=== PATIENT | female | born 1995 | race Caucasian/White ===

== ENCOUNTER → 2023-09-23 08:19 | Outpatient (REF) | payer OTHER, SELFPAY | LOC: DHCBS MAIN 08:19 | PROVIDERS: ATTENDING PHYSICIAN Internal Medicine Cardiovascular Disease; FAMILY PHYSICIAN Physician Assistant Medical | DX: R00.2 Palpitations (principal) | CPT/HCPCS: 93306 ==

== ENCOUNTER 2023-09-29 17:18 | Emergency (ER) | payer OTHER, SELFPAY ==
[2023-09-29 17:26] VITALS: BP 145/100
[2023-09-29 17:48] LABS: HCG, Urine Qualitative Screen Negative
--- NOTE | 2023-09-29 21:02 | ED.GENMED ---
History of Present Illness
General
Chief Complaint: Musculo-Skeletal Complaint
Source: patient
Exam Limitations: none
Time Seen by Provider: 09/29/23 20:04
Nursing documentation reviewed up to this point in time: agreed with
Travel History
Have you had any contact with someone who has COVID-19?: No
Do you have any symptoms of coronavirus? Fever > 100 degrees, chills, cough, shortness of breath, sore throat, loss of taste or smell, muscle aches, or headache?: No
History of Present Illness
History of Present Illness:
The patient is a 27-year-old female who reports that she has had bilateral hip pain for at least 1 month. The patient reports she is a history of complex regional pain syndrome and she believes it is spreading into both of her hips. She complains
of severe unbearable burning pain located in both hips radiating down both legs. She reports at times she has a tingling sensation. Patient reports that she has been followed by a workman comp doctor as well as pain management and has been
receiving nerve block shots. Patient reports that the pain is still horrible. She is due to have a nerve block shot early next week but states she cannot function due to severe pain. She is requesting something for pain to hold her over for the
next few days.
Past History
Past History
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
ED Past Surgical History: , Gynecological and Tonsilectomy
Social History
Tobacco: Former smoker
Alcohol: Occasional
Drug: None
Personal: (Engaged)
Living: with family
Employment: Employed
Family History
Family History: Other (Father with a 'stiff heart'. Family history of diabetes depression and anxiety grandfather with a stent in valve replacement)
Review of Systems
Review of Systems
Allergies reviewed?: Yes
All Other Systems: ROS reviewed and negative except as documented in HPI and ROS
Constitutional: Reports no symptoms
EENT: Reports no symptoms
Respiratory: Reports no symptoms
Cardiac: Reports no symptoms
ABD/GI: Reports nausea
: Reports no symptoms
Musculoskeletal: Reports joint pain (Chronic pain in right wrist, right shoulder and bilateral hips), muscle pain and muscle stiffness
Skin: Reports no symptoms
Neurological: Reports other (Occasional tingling down both legs)
Endocrine: Reports no symptoms
Hematologic/Lymphatic: Reports no symptoms
Psychiatric: Reports no symptoms
Phy Exam
Physical Exam
Physical Exam:
Physical Exam
General: Patient appears anxious and uncomfortable. But is conversational
Neck: supple.
Heart: s1/s2 regular rate and rhythm, no murmur. equal radial pulses.
Lungs: no acute respiratory distress. clear bilaterally
Abdomen: normal bowel sounds. not tender. no CVAT. No pulsatile mass
Neuro: alert and oriented. no focal neurological deficits. 5 out of 5 strength in all extremities. No saddle anesthesia
Skin: no rash
Psychiatric: well kept. interactive and cooperative
Extremities: no edema. no calf tenderness. negative homans. good distal pulses
Course
Orders/Labs/Results
Orders:
Orders
09/29/23 17:27
Hips, Bilat 5 view W/AP Pelvis [CR Hips ALTON w/wo Pel Min 5 Vw*] Urgent
Comment:
Reason For Exam: bilateral hip pain
Include a pelvis x-ray?: Yes
09/29/23 17:28
Test Result ONCE
09/29/23 17:32
HCG, Urine Qualitative Screen Urgent
Date Specimen was Collected: 09/29/23
Time Specimen was Collected: 17:28
09/29/23 21:00
HYDROmorphone [Dilaudid] 2 mg PO NOW STA
09/29/23 21:01
Ondansetron Orally Disint [Zofran Odt (Orally Disintegrating)] 4 mg PO NOW STA
Vital Signs
Initial and Last Documented VS:
Initial Vital Signs
Temp Pulse Resp BP Pulse Ox
98.5 F 107 17 145/100 99
09/29/23 17:26 09/29/23 17:26 09/29/23 17:26 09/29/23 17:26 09/29/23 17:26
Last Documented Vital Signs
Temp Pulse Resp BP Pulse Ox
98.5 F 89 18 108/79 99
09/29/23 17:26 09/29/23 21:11 09/29/23 21:11 09/29/23 21:11 09/29/23 21:11
MDM/Problems Addressed
Differential Diagnosis Includes:
Radiculopathy, musculoskeletal pain, hip fracture
MDM/Problems Addressed:
Patient presents with chronic bilateral hip pain
*Radiology
Radiology exam reviewed: preliminary read by ED provider (Bilateral hip x-ray reviewed by me. No acute disease) and radiology read reviewed
*Pulse Oximetry
Patient hypoxic: no
*EKG
Interpreted by ED Provider?: NA
*Professional Advisor Interpretation
Rate: Professional Advisor- N/A
*Critical Care Note
Total Time (30-74mins, 75-104mins- exclusive of procedures): Not Applicable
Patient Management
Social determinants of health affecting care: Living situation and Strong social support
Escalation/DeEscalation of care consider admission/obs:
There is no sign of cauda equina or neurovascular deficiency. Patient has good strength in bilateral extremities and strong pulses. Patient encouraged to follow-up with her pain management doctor
ED Attending Note
-
Portions of this chart may have been created with voice recognition software.� Occasional wrong word or��sound alike� substitutions may have occurred due to the inherent limitations of voice recognition software.
Discharge Plan
Departure
Patient Disposition: Home (Routine Discharge)
Date of Disposition: 09/29/23
Time of Disposition: 21:44
Patient with high blood pressure during this ER visit?: Yes
Condition: Good
Covid-19: Not Applicable
Discharge Problem:
Chronic hip pain, bilateral
Instructions: Opioid medicines for short-term treatment of pain, Hip Pain ED, BLOOD PRESSURE
Prescriptions:
New
hydromorphone [Dilaudid] 2 mg tablet
2 mg PO Q6H PRN (Reason: Pain) Qty: 10 0RF
ondansetron 4 mg tablet,disintegrating
4 mg PO Q6H PRN (Reason: nausea and vomiting) Qty: 14 0RF
No Action
fluoxetine [Prozac] 20 mg Capsule
10 mg PO DAILY
Tablet
1 tab PO DAILY
doxepin 75 mg Capsule
75 mg PO HS
Patient Comments:
Patient takes medication as needed
hydromorphone 2 mg Tablet
2 mg PO Q4HPRN PRN (Reason: moderate pain) Qty: 0 0RF
ibuprofen 600 mg Tablet
600 mg PO Q6HPRN PRN (Reason: cramps) Qty: 0 0RF
simethicone 80 mg Tablet,Chewable
80 mg PO TIDPRN PRN (Reason: flatulence) Qty: 0 0RF
acetaminophen 325 mg Tablet
650 mg PO Q4HPRN PRN (Reason: mild pain) Qty: 0 0RF
Referrals:
Joselin Mullen PA-C [Family Provider] -
Activity Restrictions/Additional Instructions:
Please discuss getting an MRI of your lumbar spine and pelvis with your pain management doctor
Interventions
Interventions:
*Risk Screen - Suicide Last Done: 09/29/23 17:28
*General Assessment Last Done: 09/29/23 17:28
*Neglect/Abuse Screening Last Done: 09/29/23 17:28
*ED COVID-19 Vaccine History Last Done: 09/29/23 17:28
*Nursing Disposition Last Done: 09/29/23 21:56
ED-Musculoskeletal Assessment Last Done: 09/29/23 20:09
Discharge Date and Time
Discharge Date/Time: 09/29/23 21:57
[2023-09-29] MEDS: ZOFRAN ODT (ORALLY DISINTEGRATING) 4 MG PO (21:06)
[2023-09-29] MEDS: DILAUDID 2 MG PO (21:06)
[2023-09-29 21:11] VITALS: BP 108/79
--- NOTE | 2023-09-30 00:45 | ED.ADDNOTE ---
ED Addendum
ED Addendum
ED Addendum Note:
patient called to report that her [facility] pharmacy was out of dilaudid and requested that the prescription get sent to [address] I sent a cancellation to that [facility] pharmacy for the initial dilaudid prescription that was transmitted and
transmitted the new dilaudid prescription to [facility]
== END 2023-09-29 21:57 | disposition home or self-care (01) ==
LOC: EMR 17:18
PROVIDERS: Emergency Medicine; EMERGENCY PHYSICIAN Emergency Medicine; FAMILY PHYSICIAN Physician Assistant Medical
DX: M25.552 Pain in left hip (principal); M25.551 Pain in right hip; G89.29 Other chronic pain; Z87.891 Personal history of nicotine dependence
CPT/HCPCS: 99283; 73523; 81025

== ENCOUNTER 2023-10-04 07:20 | Emergency (ER) | payer OTHER, SELFPAY ==
[2023-10-04 07:23] VITALS: BP 140/93
--- NOTE | 2023-10-04 08:14 | ED.GENMED ---
History of Present Illness
General
Chief Complaint: Breathing Problem
Source: patient and records
Exam Limitations: none
Time Seen by Provider: 10/04/23 07:36
Nursing documentation reviewed up to this point in time: agreed with
Travel History
Have you had any contact with someone who has COVID-19?: No
Do you have any symptoms of coronavirus? Fever > 100 degrees, chills, cough, shortness of breath, sore throat, loss of taste or smell, muscle aches, or headache?: No
History of Present Illness
History of Present Illness:
Patient is a 27-year-old female presents to the emergency department with sudden onset of shortness of breath and wheezing at 10:30 PM last night. Patient denies fever or chills. Patient has a chronic cough since she had a left lower lobectomy due
to sequestration of her lung and 2019. Patient denies nasal congestion or sore throat. 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
spreading throughout her body. Patient had nausea and vomiting from the pain. Patient denies abdominal pain. However the patient states that she is only able to eat 1 meal every 2 to 3 days. Patient does not smoke or take oral control
pills. Patient does not use an inhaler. There is no apparent trigger to set the shortness of breath off. Patient denies history of PE or DVT. Patient states she is hot and cold all the time due to the pain and this is unchanged.
Past History
Past History
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
ED Past Surgical History: , Gynecological and Tonsilectomy
Social History
Tobacco: Former smoker
Alcohol: Occasional
Drug: None
Personal: (Engaged)
Living: with family
Employment: Employed
Family History
Family History: Other (Father with a 'stiff heart'. Family history of diabetes depression and anxiety grandfather with a stent in valve replacement)
Review of Systems
Review of Systems
All Other Systems: ROS reviewed and negative except as documented in HPI and ROS
Constitutional: Reports fatigue and chills
EENT: Reports no symptoms
Respiratory: Reports cough and trouble breathing; Denies hemoptysis
Cardiac: Reports chest pain; Denies diaphoresis or palpitations
ABD/GI: Reports nausea, vomiting and anorexia; Denies abdominal pain, diarrhea or constipated
: Reports no symptoms
Musculoskeletal: Reports other (Chronic right upper extremity pain)
Skin: Reports no symptoms
Hematologic/Lymphatic: Reports no symptoms
Phy Exam
Physical Exam
Physical Exam:
Physical Exam
General: moderate distress, alert and appropriate, morbidly obese, well hydrated
HENT: Normocephalic, supple with no lymphadenopathy, no thyromegaly
Eyes: Clear sclera, conjuctiva without injection
Heart: Regular rhythm and rate. No S3, S4. No murmur. No NVD
Lungs: moderate respiratory distress, no stridor, lung sounds clear and decreased in the left base, chest wall symmetrical and tender throughout
Abdomen: Soft, nontender, no organomegaly, no CVA tenderness, BS good
Neuro: Alert and oriented x 3, CN II - XII intact, no motor focality, no cerebellar dysfunction
Skin: no rash
Psychiatric: well kept. interactive and cooperative
Extremities: No edema, cyanosis, tenderness
Course
Orders/Labs/Results
Orders:
Orders
10/04/23 08:12
Ipratropium/Albuterol Sulfate [Duoneb] 3 ml INH R NOW ONE
10/04/23 08:13
Electrocardiogram (*1) Urgent
Reason for Study: Shortness of Breath
EKG- Treatment ONCE
Test Result ONCE
10/04/23 08:14
CR Chest - 2 Views Urgent
Comment:
Reason For Exam: sob
10/04/23 08:35
Complete Blood Count/With Diff Urgent
Comprehensive Metabolic Panel Urgent
D-Dimer Urgent
HCG, Serum Qualitative Screen Urgent
10/04/23 09:58
Dexamethasone Sod Phos Pf [Decadron] 10 mg IM NOW STA
Abnormal Lab Results
10/04/23
08:35
Hgb 11.7 L g/dL
(12.0-16.0)
Hct 35.6 L %
(37.0-47.0)
MCHC 32.9 L g/dL
(33.0-37.0)
RDW 14.6 H %
(11.5-14.5)
MPV 11.1 H fL
(7.4-10.4)
10/04/23 08:35
10/04/23 08:35
Vital Signs
Initial and Last Documented VS:
Initial Vital Signs
Temp Pulse Resp BP Pulse Ox
99.0 F 107 16 140/93 98
10/04/23 07:23 10/04/23 07:23 10/04/23 07:23 10/04/23 07:23 10/04/23 07:23
Last Documented Vital Signs
Temp Pulse Resp BP Pulse Ox
99.0 F 99 18 132/71 100
10/04/23 07:23 10/04/23 12:33 10/04/23 12:33 10/04/23 12:33 10/04/23 12:33
*Critical Care Note
Total Time (30-74mins, 75-104mins- exclusive of procedures): Not Applicable
Update Note
Update Note:
Patient is feeling better. Patient's voice is less hoarse and she is breathing more easily. The breath sounds are less coarse also. Patient is looking for a pain specialist who might do ketamine for her RSD. Patient will receive a referral along
with inhaler and steroids.
ED Attending Note
-
Portions of this chart may have been created with voice recognition software.� Occasional wrong word or��sound alike� substitutions may have occurred due to the inherent limitations of voice recognition software.
Discharge Plan
Departure
Patient Disposition: Home (Routine Discharge)
Date of Disposition: 10/04/23
Time of Disposition: 13:00
Patient with high blood pressure during this ER visit?: No
Condition: Fair
Covid-19: Not Applicable
Discharge Problem:
Acute bronchitis, RSD (reflex sympathetic dystrophy)
Instructions: Complex regional pain syndrome, Acute Bronchitis, Adult (DC)
Prescriptions:
New
prednisone 20 mg tablet
20 mg PO BID Qty: 14 0RF
albuterol sulfate [ProAir HFA] 90 mcg/actuation Hfa Aerosol Inhaler
1 puff INHALATION Q4HPRN PRN (Reason: shortness of breath) Qty: 8.5 0RF
No Action
fluoxetine [Prozac] 20 mg Capsule
10 mg PO DAILY
Tablet
1 tab PO DAILY
doxepin 75 mg Capsule
75 mg PO HS
Patient Comments:
Patient takes medication as needed
hydromorphone 2 mg Tablet
2 mg PO Q4HPRN PRN (Reason: moderate pain) Qty: 0 0RF
ibuprofen 600 mg Tablet
600 mg PO Q6HPRN PRN (Reason: cramps) Qty: 0 0RF
simethicone 80 mg Tablet,Chewable
80 mg PO TIDPRN PRN (Reason: flatulence) Qty: 0 0RF
acetaminophen 325 mg Tablet
650 mg PO Q4HPRN PRN (Reason: mild pain) Qty: 0 0RF
ondansetron 4 mg tablet,disintegrating
4 mg PO Q6H PRN (Reason: nausea and vomiting) Qty: 14 0RF
hydromorphone [Dilaudid] 2 mg tablet
2 mg PO Q6H PRN (Reason: Pain) Qty: 10 0RF
Referrals:
Vasiliy Sena MD [Active] - Call in 1-3 days for appt
Joselin Mullen PA-C [Family Provider] - Follow up in 5-7 days
Interventions
Interventions:
*Risk Screen - Suicide Last Done: 10/04/23 08:22
*General Assessment Last Done: 10/04/23 08:22
*Neglect/Abuse Screening Last Done: 10/04/23 08:22
ED- Fall Risk Assessment Last Done: 10/04/23 08:22
*ED COVID-19 Vaccine History Last Done: 10/04/23 07:23
ED- Cardiac Assessment Last Done: 10/04/23 12:33
ED- Pulmonary Assessment Last Done: 10/04/23 08:22
[2023-10-04] MEDS: DUONEB 3 ML INH (08:32)
[2023-10-04 08:43] LABS: % Basophils 0.3 % (0-2); % Immature Granulocytes 0.3 % (0-0.5); % Lymphocytes 30.2 % (20.5-51.1); % Monocytes 6.3 % (1.7-9.3); % Neutrophils 62.9 % (42.2-75.2); Absolute Lymphocytes 2.1 10^3/uL (1.2-3.4); Absolute Monocytes 0.4 10^3/uL (0.1-0.6); Absolute Neutrophils 4.4 10^3/uL (1.4-6.5); Hematocrit 35.6 % (37.0-47.0); Hemoglobin 11.7 g/dL (12.0-16.0); Mean Corp Hgb Conc. 32.9 g/dL (33.0-37.0); Mean Platelet Volume 11.1 fL (7.4-10.4); Nucleated Red Blood Cells % 0 %; Platelet Count 233 10^3/uL (130-400); Red Blood Cell Count 4.34 10^6/uL (4.20-5.40); Red Cell Dist. Width 14.6 % (11.5-14.5)
[2023-10-04 08:52] LABS: HCG, Serum Qualitative Screen Negative
[2023-10-04 09:02] LABS: ALT (SGPT) 24 U/L (0-35); AST (SGOT) 26 U/L (14-36); Alkaline Phosphatase 67 U/L (38-126); Blood Urea Nitrogen 10 mg/dl (7-17); Carbon Dioxide 25 mmol/L (22-30); Chloride 106 mmol/L (98-107); Glucose 99 mg/dl (70-99); Potassium 4.1 mmol/L (3.5-5.1); Sodium 135 mmol/L (135-145); Total Bilirubin 0.5 mg/dl (0.2-1.3); Total Protein 6.8 g/dl (6.3-8.2); eGFR > 60.00
[2023-10-04 09:25] LABS: D-Dimer < 0.27 ug/mlFEU (0.00-0.50)
[2023-10-04] MEDS: DECADRON 10 MG IM (10:11)
[2023-10-04 12:33] VITALS: BP 132/71
== END 2023-10-04 13:05 | disposition home or self-care (01) ==
LOC: EMR 07:20
PROVIDERS: EMERGENCY PHYSICIAN Emergency Medicine; FAMILY PHYSICIAN Physician Assistant Medical
DX: J20.9 Acute bronchitis, unspecified (principal); G90.50 Complex regional pain syndrome I, unspecified; G89.29 Other chronic pain; Z87.891 Personal history of nicotine dependence
CPT/HCPCS: 99285; 96372; 94640; 71046; 80053; 84703; 85025; 85379; 93005

== ENCOUNTER 2023-10-07 03:15 | Inpatient (IN) | payer OTHER, SELFPAY ==
[2023-10-06 21:02] VITALS: BP 123/62; BMI 47.1
[2023-10-06 22:55] LABS: % Basophils 0.3 % (0-2); % Eosinophils 1.7 % (0-6); % Immature Granulocytes 0.3 % (0-0.5); % Lymphocytes 33.8 % (20.5-51.1); % Monocytes 13.8 % (1.7-9.3); % Neutrophils 50.1 % (42.2-75.2); Absolute Eosinophils 0.1 10^3/uL (0-0.7); Absolute Lymphocytes 2.1 10^3/uL (1.2-3.4); Absolute Monocytes 0.9 10^3/uL (0.1-0.6); Absolute Neutrophils 3.2 10^3/uL (1.4-6.5); Hematocrit 34.4 % (37.0-47.0); Hemoglobin 11.4 g/dL (12.0-16.0); Mean Corp Hgb Conc. 33.1 g/dL (33.0-37.0); Mean Corpuscular Hgb 26.5 pg (27.0-31.0); Mean Platelet Volume 10.1 fL (7.4-10.4); Nucleated Red Blood Cells % 0 %; Platelet Count 244 10^3/uL (130-400); Red Cell Dist. Width 15.5 % (11.5-14.5); White Blood Cell Count 6.3 10^3/uL (4.8-10.8)
[2023-10-06 23:02] VITALS: BP 93/42
--- NOTE | 2023-10-06 23:03 | ED.GENMED ---
History of Present Illness
General
Chief Complaint: Breathing Problem
Source: patient
Exam Limitations: none
Time Seen by Provider: 10/06/23 22:29
Travel History
Have you had any contact with someone who has COVID-19?: No
Do you have any symptoms of coronavirus? Fever > 100 degrees, chills, cough, shortness of breath, sore throat, loss of taste or smell, muscle aches, or headache?: No
History of Present Illness
History of Present Illness:
This is a 27 year old female that comes in with multiple complaints. States that she has chest pain, SOB since Wednesday. States that she was here with Wheezing on Wednesday and she is getting worse. States that she can't eat or roll on her side. States
that she was lucia on Wednesday and sent home with a diagnosis of Bronchitis. States that the week before this she saw Dr. Liao with nausea and vomiting. States that she was given Dilaudid and zofran and she has not been able to take his as it
makes her vomit. States that she had a fever of 103 on Wednesday. States that she has had chills, chest pain, SOB, vomiting, headache, dizziness. Denies any abd pain nausea, diarrhea, urinary burning.
Past History
Past History
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
ED Past Surgical History: Cholecystectomy, , Gynecological (Ovarian cyst, 2 miscarriage's, ), Tonsilectomy and Other (LLL resection)
Social History
Tobacco: Former smoker
Alcohol: Occasional
Drug: None
Personal: (Engaged)
Living: with family
Employment: Employed
Family History
Family History: Other (Father with a 'stiff heart'. Family history of diabetes depression and anxiety grandfather with a stent in valve replacement)
Review of Systems
Review of Systems
All Other Systems: ROS reviewed and negative except as documented in HPI and ROS
Constitutional: Reports fever and chills
EENT: Reports no symptoms; Denies sore throat
Respiratory: Reports cough and trouble breathing
Cardiac: Reports chest pain
ABD/GI: Reports vomiting; Denies abdominal pain, nausea or diarrhea
: Reports no symptoms; Denies dysuria, frequency or urgency
Musculoskeletal: Reports no symptoms
Skin: Reports no symptoms
Neurological: Reports dizzy and headache
Psychiatric: Reports no symptoms
Phy Exam
General Physical Exam
General Presentation: mild distress
General age: appears stated age
General Skin: warm and dry
General Habitus: normal
General Mental: alert
General Hydration: dry mucous membranes
ENT Exam
ENT Exam: TM's normal, pharynx normal and neck supple
Eye Exam
Eye Exam: EOMI
Cardiovascular Exam
Cardiovascular Exam: no edema, normal peripheral pulses and tachycardia
Pulmonary Exam
Pulmonary Exam: no respiratory distress, chest non tender, no rhonchi, generalized wheezing and other (Fine crackles noted)
Gastrointestinal Exam
Gastrointestinal Exam: normal bowel sounds, soft, no organomegaly, no pulsatile mass, non distended and tender (Generalized soreness with palpation. Negative for discomfort without palpation)
Musculoskeletal Exam
Musculoskeletal Exam: full ROM and no edema
Skin Exam
Skin Exam: normal color, warm/dry, no rash and no petechia
Course
Orders/Labs/Results
Orders:
Orders
10/06/23 21:08
Electrocardiogram (*1) Urgent
Reason for Study: Other
Other Reason for Exam: Possible Sepsis
EKG- Treatment ONCE
10/06/23 22:47
Complete Blood Count/With Diff Urgent
Comprehensive Metabolic Panel Urgent
HCG, Serum Qualitative Screen Urgent
Comment: ADD ON
10/06/23 23:01
Acetaminophen 1000MG/100Ml [Ofirmev] 1,000 mg in 100 ml IV ONCE
Acetaminophen IV Indication:: ED Narcotic Naive Pt-ONCE
Dexamethasone Sod Phosphate [Decadron] 20 mg IV NOW STA
Ipratropium/Albuterol Sulfate [Duoneb] 3 ml INH R NOW ONE
CR Chest - 2 Views Urgent
Comment:
Reason For Exam: sob
10/06/23 23:02
Add On- LAB Urgent
Tests Added?: hcg
10/06/23 23:15
COVID-19 Antigen Urgent
Source: Nasal Swab
NT-proBNP Urgent
Troponin I Urgent
Influenza A+B Rapid Molecular Urgent
FRANCO Source: Nasal Swab
Specimen Description:
10/06/23 23:41
Ondansetron Injectable [Zofran] 4 mg .ROUTE .STK-MED ONE
Ondansetron Injectable [Zofran] 4 mg IV NOW STA
10/07/23 00:00
HYDROmorphone [Dilaudid] 0.5 mg IV NOW STA
Abnormal Lab Results
10/06/23
22:47
Hgb 11.4 L g/dL
(12.0-16.0)
Hct 34.4 L %
(37.0-47.0)
MCV 80.0 L fL
(81.0-99.0)
MCH 26.5 L pg
(27.0-31.0)
RDW 15.5 H %
(11.5-14.5)
Absolute Monos (auto) 0.9 H 10^3/uL
(0.1-0.6)
Monocytes % 13.8 H %
(1.7-9.3)
Sodium 134 L mmol/L
(135-145)
10/06/23 22:47
10/06/23 22:47
H/H slightly low. Anemia, HCG negative. Troponin <0.012, Pro-BNP <20.0, COVID negative. Influenza A positive.
Vital Signs
Initial and Last Documented VS:
Initial Vital Signs
Temp Pulse Resp BP Pulse Ox
100.6 F H 112 24 123/62 97
10/06/23 21:02 10/06/23 21:02 10/06/23 21:02 10/06/23 21:02 10/06/23 21:02
Last Documented Vital Signs
Temp Pulse Resp BP Pulse Ox
100.6 F H 125 35 113/73 100
10/06/23 21:02 10/07/23 00:00 10/07/23 00:00 10/07/23 00:00 10/06/23 23:00
MDM/Problems Addressed
Differential Diagnosis Includes:
Asthma exacerbation, PNA, CHF
MDM/Problems Addressed:
This is a 27 year old female that comes in with multiple complaints. Patient has been seen twice in the ER in the past few weeks. Tonight she states that she has chest pain, SOB, wheezing abd sorness. and has not been able to take her medications as
this make her vomit.
Will get labs, COVID, Influenza, Chest X-ray.
Back into see patient. Patient states that she is not feeling any better. Continues with insp and exp wheezing throughout. Will admit patient. Hospitalist notified.
Chronic conditions affecting care: Psychiatric illness
Acute Exacerbation and/or Progression of Chronic Illness: Psychiatric illness
*Radiology
Radiology exam reviewed: radiology read reviewed (Chest- Negative for active disease. )
*Pulse Oximetry
Patient hypoxic: no
*EKG
Interpreted by ED Provider?: Yes
Heart Rate: 119
Rhythm: sinus
Dawson: normal axis
Interval: normal interval
QRS Pattern: normal QRS
Ischemia: no ischemia
*[employer] Salesperson Interpretation
Rate: tachycardiac
Heart Rate: 118
Rhythm: sinus tachycardia
*Critical Care Note
Total Time (30-74mins, 75-104mins- exclusive of procedures): Not Applicable
ED Attending Note
-
Portions of this chart may have been created with voice recognition software.� Occasional wrong word or��sound alike� substitutions may have occurred due to the inherent limitations of voice recognition software.
Discharge Plan
Departure
Patient Disposition: Admit
Date of Disposition: 10/07/23
Time of Disposition: 00:05
Admit to: Telemetry
Presentation/result/management discussed w/ accepting MD/DO: Hospitalist
Patient with high blood pressure during this ER visit?: Yes
Condition: Good
Discharge Problem:
Asthma exacerbation, Influenza A
Prescriptions:
No Action
doxepin 75 mg Capsule
150 mg PO HS
Patient Comments:
Patient takes medication as needed
ondansetron 4 mg tablet,disintegrating
4 mg PO Q6H PRN (Reason: nausea and vomiting) Qty: 14 0RF
hydromorphone [Dilaudid] 2 mg tablet
2 mg PO Q6H PRN (Reason: Pain) Qty: 10 0RF
prednisone 20 mg tablet
20 mg PO BID Qty: 14 0RF
albuterol sulfate [ProAir HFA] 90 mcg/actuation Hfa Aerosol Inhaler
1 puff INHALATION Q4HPRN PRN (Reason: shortness of breath) Qty: 8.5 0RF
venlafaxine [Effexor] 25 mg Tablet
25 mg PO BID
doxepin 150 mg Capsule
150 mg PO DAILY
gabapentin
2,400 mg DAILY
Referrals:
Joselin Mullen PA-C [Family Provider] -
Interventions
Interventions:
*Risk Screen - Suicide Last Done: 10/06/23 21:02
*Neglect/Abuse Screening Last Done: 10/06/23 21:02
ED- Fall Risk Assessment Last Done: 10/06/23 23:02
*ED COVID-19 Vaccine History Last Done: 10/06/23 21:02
ED- Cardiac Assessment Last Done: 10/06/23 23:02
ED- Pulmonary Assessment Last Done: 10/06/23 23:02
--- NOTE | 2023-10-06 23:05 | VATNOTE ---
PT INSISTED THAT I INSERT IV IN RAC AFTER 1 UNSUCCESSFUL ATTEMPT IN LUE. IV INSERTED DOCUMENTED AND LABS OBTAINED. PCN AWARE .
[2023-10-06] MEDS: DUONEB 3 ML INH (23:06)
[2023-10-06] MEDS: DECADRON 20 MG IV (23:06)
[2023-10-06 23:11] LABS: ALT (SGPT) 24 U/L (0-35); AST (SGOT) 24 U/L (14-36); Albumin 4.1 g/dl (3.5-5.0); Alkaline Phosphatase 65 U/L (38-126); Blood Urea Nitrogen 15 mg/dl (7-17); Calcium 8.6 mg/dl (8.4-10.2); Carbon Dioxide 25 mmol/L (22-30); Chloride 103 mmol/L (98-107); Estimated Creatinine Clearance > 125 ml/min; Glucose 96 mg/dl (70-99); Potassium 3.9 mmol/L (3.5-5.1); Sodium 134 mmol/L (135-145); Total Bilirubin 0.4 mg/dl (0.2-1.3); Total Protein 6.9 g/dl (6.3-8.2); eGFR > 60.00
[2023-10-06 23:13] LABS: HCG, Serum Qualitative Screen Negative
[2023-10-06 23:15] VITALS: BP 127/73
[2023-10-06] MEDS: ZOFRAN 4 MG IV (23:42)
[2023-10-06 23:57] LABS: NT-proBNP < 20.0 pg/ml; Troponin I < 0.012 ng/ml
[2023-10-07] VITALS (10 sets, daily range): BP systolic 99–123; BP diastolic 44–80; BMI 46.1
[2023-10-07] MEDS: DILAUDID 0.5 MG IV ×5 (00:09→21:35)
[2023-10-07 00:11] LABS: COVID-19 Antigen Negative (Negative)
--- NOTE | 2023-10-07 01:20 | HPS.HSE ---
Family Physician
-
Family Physician: Joselin Mullen
Chief Complaint
-
shortness of breath
History of Present Illness
Ms. Jing Mueller is a 27 yo woman with hx anxiety/depression, trapped left lower lung s/p resection 2018 (with post-op chronic symptoms of chest pain and shortness of breath), complex regional pain syndrome, recent ER visit 10/04 for bronchitis
and pain flare presents to the ER with continued wheezing and shortness of breath.
Patient was discharged on steroids two days ago. She has had continued shortness of breath. She has also had nausea/vomiting and inability to keep pills down. + fevers/chills. + abdominal pain. She has complex regional pain syndrome and feels
it is spreading from left shoulder down to legs, trying to see outpatient specialist.
Medical History
Past Medical History
Past Medical History: Reports Other (anxiety/depression, trapped left lower lung s/p resection 2019, complex regional pain syndrome, recent ER visit 10/04 for bronchitis and pain flare)
Past Surgical History: Reports Other (Cholecystectomy, , Gynecological (Ovarian cyst, 2 miscarriage's, ), Tonsilectomy and Other (left lower lung resection))
Social History
Tobacco: Former Smoker
Alcohol: Occasional
Family History
Family History: Not pertinent
Allergies / Home Medications
Allergies reflects when Allergies were last updated in Subtext.
Home Medications with original date entered in Subtext
Allergy/Medication List:
Allergies
Allergy/AdvReac Type Severity Reaction Status Date / Time
oxycodone Allergy Nausea / Verified 10/04/23 07:27
Vomiting
Home Medications
doxepin 75 mg capsule 150 mg PO HS Mental Health/Anxiety 12/21/22
ondansetron 4 mg disintegrating tablet 4 mg PO Q6H PRN nausea and vomiting #14 tabs 09/29/23
hydromorphone 2 mg tablet (Dilaudid) 2 mg PO Q6H PRN Pain #10 tabs 09/30/23
albuterol sulfate 90 mcg/actuation aerosol inhaler (ProAir HFA) 1 puff inhalation Q4HPRN PRN shortness of breath #8.5 grams 10/04/23
prednisone 20 mg tablet 20 mg PO BID #14 tabs 10/04/23
doxepin 150 mg capsule 150 mg PO DAILY 10/06/23
gabapentin 2,400 mg DAILY 10/06/23
venlafaxine 25 mg tablet 25 mg PO BID 10/06/23
Review of Systems
-
History Source: Patient
A 12 point ROS was completed and negative except as noted: Yes
Physical Exam
Vital Signs
Vital Signs
Temp Pulse Resp BP Pulse Ox
100.6 F H 116 25 116/68 100
10/06/23 21:02 10/07/23 01:00 10/07/23 01:00 10/07/23 01:00 10/06/23 23:00
Physical Exam
General: Other (appears anxious, mildly tachypneic )
Respiratory: Other (tachypneic, decreased breath sounds left ); No Wheezes
Cardiac: S1/S2 and Tachycardia
GI: Soft and Non Tender
Musculoskeletal: Other (b/l trace edema )
Skin: Warm and Dry; No Rash
Neuro: AO x 3
Psych: Calm
Laboratory Results
-
10/06/23 22:47
10/06/23 22:47
Laboratory Results
Total Bilirubin 0.4 mg/dl (0.2-1.3) 10/06/23 22:47
AST 24 U/L (14-36) 10/06/23 22:47
ALT 24 U/L (0-35) 10/06/23 22:47
Alkaline Phosphatase 65 U/L (38-126) 10/06/23 22:47
Troponin I < 0.012 ng/ml 10/06/23 23:15
Data Reviewed
-
Diagnostic Radiology: Report Reviewed by me
Lab Data: Labs Reviewed by me
Impression/Plan
-
Ms. Jing Mueller is a 27 yo woman with hx anxiety/depression, trapped left lower lung s/p resection 2018 (with post-op chronic symptoms of chest pain and shortness of breath), complex regional pain syndrome, recent ER visit 10/04 for bronchitis
and pain flare presents to the ER with continued wheezing and shortness of breath.
Triage VS: T 100.6, P 112, RR 24, BP 123/62, SpO2 97%
LABS: WBC 6.3 Hg 11.4, PLT 244, Na 134, K+ 3.9, CO2 25, BUN 15, Cr 0.8, liver enzymes WNL, Trop < 0.012, BNP < 20
covid negative
influenza positive
MAR: duonebs, decadron 20, dilaudid, zofran, tylenol
Influenza
Sepsis
Acute Bronchitis
-admit to telemetry
-given nausea/vomiting and poor appetite will give IVF
-start Tamiflu
-IV Decadron
-standing duonebs
-IV Zofran PRN
Hx trapped left lower lung s/p resection 2018
Complex regional pain syndrome
-continue dilaudid started recent ER visit
Anxiety/Depression
-patient hasn't taken meds in several days 2/2 nausea
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
DVT PPx lovenox subQ
FULL CODE
[2023-10-07] MEDS: TAMIFLU 75 MG PO ×2 (01:55→20:30)
[2023-10-07] MEDS: NSS 500 IV (01:56)
[2023-10-07] MEDS: NSS 1000 IV ×2 (04:00→15:35)
[2023-10-07] MEDS: ZOFRAN 4 MG IV ×3 (04:26→19:28)
[2023-10-07] MEDS: DUONEB INH (04:48)
[2023-10-07] MEDS: DUONEB 3 ML INH ×5 (05:00→19:35)
[2023-10-07 06:21] LABS: % Immature Granulocytes 0.5 % (0-0.5); % Lymphocytes 21.9 % (20.5-51.1); % Monocytes 3.4 % (1.7-9.3); % Neutrophils 74.2 % (42.2-75.2); Absolute Lymphocytes 0.8 10^3/uL (1.2-3.4); Absolute Monocytes 0.1 10^3/uL (0.1-0.6); Absolute Neutrophils 2.9 10^3/uL (1.4-6.5); Hematocrit 34.6 % (37.0-47.0); Hemoglobin 11.2 g/dL (12.0-16.0); Mean Corp Hgb Conc. 32.4 g/dL (33.0-37.0); Mean Corpuscular Hgb 26.2 pg (27.0-31.0); Mean Platelet Volume 10.4 fL (7.4-10.4); Nucleated Red Blood Cells % 0 %; Platelet Count 235 10^3/uL (130-400); Red Blood Cell Count 4.27 10^6/uL (4.20-5.40); Red Cell Dist. Width 15.4 % (11.5-14.5); White Blood Cell Count 3.8 10^3/uL (4.8-10.8)
[2023-10-07 08:20] LABS: Blood Urea Nitrogen 11 mg/dl (7-17); Calcium 8.1 mg/dl (8.4-10.2); Carbon Dioxide 23 mmol/L (22-30); Chloride 104 mmol/L (98-107); Estimated Creatinine Clearance > 125 ml/min; Glucose 138 mg/dl (70-99); Magnesium 1.9 mg/dl (1.6-2.3); Potassium 4.2 mmol/L (3.5-5.1); Sodium 133 mmol/L (135-145); eGFR > 60.00
[2023-10-07] MEDS: NEURONTIN 800 MG PO (08:59)
[2023-10-07] MEDS: EFFEXOR 25 MG PO (08:59)
[2023-10-07] MEDS: SINEQUAN PO (09:01)
[2023-10-07] MEDS: DECADRON 4 MG IV (09:07)
--- NOTE | 2023-10-07 13:10 | W.PN.HOSP.TC ---
Today's Communication/Plan
-
supportive care
duonebs
incentive hortensia
Assessment / Plan
Assessment / Plan
Physical Exam
General: Other (appears anxious, mildly tachypneic )
Respiratory: Other (tachypneic, rhonchorous b/l ); No Wheezes
Cardiac: S1/S2 and Tachycardia
GI: Soft and Non Tender
Musculoskeletal: Other (b/l trace edema )
Skin: Warm and Dry; No Rash
Neuro: AO x 3
Psych: Calm
Ms. Jing Mueller is a 27 yo woman with hx anxiety/depression, trapped left lower lung s/p resection 2018 (with post-op chronic symptoms of chest pain and shortness of breath), complex regional pain syndrome, recent ER visit 10/04 for bronchitis
and pain flare presents to the ER with continued wheezing and shortness of breath.�
Influenza
Sepsis
Acute Bronchitis
-admit to telemetry
-given nausea/vomiting and poor appetite will give IVF
-start Tamiflu
-standing duonebs
-IV Zofran PRN
Hx trapped left lower lung s/p resection 2018
Complex regional pain syndrome
-continue dilaudid started recent ER visit
Anxiety/Depression
-patient hasn't taken meds in several days 2/2 nausea
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
DVT PPx lovenox subQ
FULL CODE
Anticipated Discharge: 24 - 48 hours
Subjective/Interval History
-
Date of Service: October 07, 2023
No acute events overnight
Objective Data
-
Labs:
Laboratory Results
10/07/23
05:03
WBC 3.8 L
Hgb 11.2 L
Hct 34.6 L
Plt Count 235
Sodium 133 L
Potassium 4.2
Chloride 104
Carbon Dioxide 23
BUN 11
Creatinine 0.7
Glucose 138 H
Calcium 8.1 L
Vital Signs:
Vital Signs
Temp Pulse Resp BP Pulse Ox
97.8 F 111 22 105/62 95
10/07/23 11:00 10/07/23 12:00 10/07/23 12:00 10/07/23 11:00 10/07/23 12:00
Review of Systems
-
History Source: Patient
All other systems: Not reviewed unless documented
Data Reviewed
-
Diagnostic Radiology: Image personally visualized and interpreted and Report Reviewed by me
CT Scan: Image personally visualized and interpreted
Labs: Labs Reviewed by me
[2023-10-07] MEDS: ZOFRAN 8 MG IV (13:46)
--- NOTE | 2023-10-07 14:30 | PTCARENOTE ---
pt states having episode of n/v down at her Cat scan. pt given stat dose of zofran when returning to floor. pt received IV zofran and prn pain medications this AM as well. see MAR for proper charting.
--- NOTE | 2023-10-07 15:10 | CM ---
Initial assessment completed with patient who lives with her and 3 children (2 and 4 y/o and a 9 month old.) They live in an apartment in a 2 story home. They live on the 2nd floor. 6 steps to enter the home and 7 to the 2nd floor. B/B on
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 Support system is , brother, parents and friends. Had one voluntary psychiatric admission at [facility] when she was 15 y/o when
her friend committed suicide. Pharmacy is [facility] at [address] [place] [address] in [place], PCP is Dr. Joselin Dalton. Anticipate no needs at discharge. Will continue to follow medical progression.
[2023-10-07] MEDS: LOVENOX 40 MG SC (18:29)
[2023-10-07] MEDS: EFFEXOR PO (20:13)
[2023-10-07] MEDS: SINEQUAN 150 MG PO (20:31)
[2023-10-07] MEDS: NEURONTIN 1600 MG PO (20:31)
[2023-10-08] VITALS (7 sets, daily range): BP systolic 92–116; BP diastolic 57–74
[2023-10-08] MEDS: NSS 1000 IV (01:19)
[2023-10-08] MEDS: ZOFRAN 4 MG IV ×3 (05:10→17:26)
[2023-10-08] MEDS: DILAUDID 0.5 MG IV ×3 (05:10→17:26)
[2023-10-08 06:15] LABS: Hematocrit 31.5 % (37.0-47.0); Hemoglobin 10.3 g/dL (12.0-16.0); Mean Corp Hgb Conc. 32.7 g/dL (33.0-37.0); Mean Corpuscular Hgb 26.7 pg (27.0-31.0); Mean Corpuscular Volume 81.6 fL (81.0-99.0); Mean Platelet Volume 10.3 fL (7.4-10.4); Platelet Count 242 10^3/uL (130-400); Red Blood Cell Count 3.86 10^6/uL (4.20-5.40); Red Cell Dist. Width 15.8 % (11.5-14.5); White Blood Cell Count 4.6 10^3/uL (4.8-10.8)
[2023-10-08 06:40] LABS: Blood Urea Nitrogen 10 mg/dl (7-17); Calcium 8.1 mg/dl (8.4-10.2); Carbon Dioxide 28 mmol/L (22-30); Chloride 105 mmol/L (98-107); Estimated Creatinine Clearance > 125 ml/min; Glucose 104 mg/dl (70-99); Magnesium 2.5 mg/dl (1.6-2.3); Phosphorus 3.8 mg/dl (2.5-4.5); Potassium 4.3 mmol/L (3.5-5.1); Sodium 136 mmol/L (135-145); eGFR > 60.00
[2023-10-08] MEDS: DUONEB 3 ML INH ×5 (07:17→21:54)
[2023-10-08] MEDS: TAMIFLU 75 MG PO ×2 (09:01→20:37)
[2023-10-08] MEDS: EFFEXOR XR 225 MG PO (09:01)
[2023-10-08] MEDS: NEURONTIN 800 MG PO (09:02)
[2023-10-08] MEDS: SINEQUAN PO (09:02)
[2023-10-08] MEDS: EFFEXOR PO (09:08)
[2023-10-08 10:05] LABS: Procalcitonin < 0.05 ng/ml (0.0-0.25)
--- NOTE | 2023-10-08 11:32 | W.PN.HOSP.TC ---
Today's Communication/Plan
-
duonebs
tamiflu
steroids
Assessment / Plan
Assessment / Plan
Physical Exam
General: Other (appears anxious, mildly tachypneic )
Respiratory: Other (tachypneic, rhonchorous b/l ); No Wheezes
Cardiac: S1/S2 and Tachycardia
GI: Soft and Non Tender
Musculoskeletal: Other (b/l trace edema )
Skin: Warm and Dry; No Rash
Neuro: AO x 3
Psych: Calm
Ms. Jing Mueller is a 27 yo woman with hx anxiety/depression, trapped left lower lung s/p resection 2018 (with post-op chronic symptoms of chest pain and shortness of breath), complex regional pain syndrome, recent ER visit 10/04 for bronchitis
and pain flare presents to the ER with continued wheezing and shortness of breath.�
Influenza
Sepsis
Acute Bronchitis
-admit to telemetry
-given nausea/vomiting and poor appetite will give IVF
-Tamiflu
� Solu-Medrol 60 mg Q8h
-standing duonebs
-IV Zofran PRN
Hx trapped left lower lung s/p resection 2018
Complex regional pain syndrome
-continue dilaudid started recent ER visit
Anxiety/Depression
-patient hasn't taken meds in several days 2/2 nausea
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
DVT PPx lovenox subQ
FULL CODE
Anticipated Discharge: > 48 hours
Subjective/Interval History
-
Date of Service: October 08, 2023
Symptomatically improved
Objective Data
-
Labs:
Laboratory Results
10/08/23
04:59
WBC 4.6 L
Hgb 10.3 L
Hct 31.5 L
Plt Count 242
Sodium 136
Potassium 4.3
Chloride 105
Carbon Dioxide 28
BUN 10
Creatinine 0.7
Glucose 104 H
Calcium 8.1 L
Vital Signs:
Vital Signs
Temp Pulse Resp BP Pulse Ox
98.2 F 79 17 110/68 95
10/08/23 11:31 10/08/23 11:31 10/08/23 11:31 10/08/23 11:31 10/08/23 11:31
I&O
10/07/23 10/08/23 10/09/23
06:59 06:59 06:59
Intake Total 4020 / 4020
Balance 4020 / 4020
Review of Systems
-
History Source: Patient
All other systems: Not reviewed unless documented
Data Reviewed
-
Diagnostic Radiology: Image personally visualized and interpreted and Report Reviewed by me
CT Scan: Image personally visualized and interpreted
Labs: Labs Reviewed by me
[2023-10-08] MEDS: NSS IV (11:46)
[2023-10-08] MEDS: LR 1000 IV (12:16)
--- NOTE | 2023-10-08 13:57 | CM ---
Patient remains on IV Solu-Medrol. Has other chronic medical complexities. Anticipate home with no needs vs services. Will continue to follow medical progression to determine if needs change.
[2023-10-08] MEDS: SOLU-MEDROL PF 60 MG IV (17:24)
[2023-10-08] MEDS: LOVENOX 40 MG SC (17:26)
[2023-10-08] MEDS: NEURONTIN 1600 MG PO (21:51)
[2023-10-08] MEDS: SINEQUAN 150 MG PO (21:52)
[2023-10-09] VITALS (7 sets, daily range): BP systolic 106–118; BP diastolic 58–72
[2023-10-09] MEDS: SOLU-MEDROL PF 60 MG IV ×3 (00:58→16:44)
[2023-10-09] MEDS: ZOFRAN 4 MG IV ×4 (03:34→21:35)
[2023-10-09] MEDS: DILAUDID 0.5 MG IV ×4 (03:35→21:41)
[2023-10-09] MEDS: DUONEB 3 ML INH ×4 (07:35→19:18)
[2023-10-09] MEDS: TAMIFLU 75 MG PO ×2 (08:19→20:19)
[2023-10-09] MEDS: FLUSH (NSS) 2 FLUSH IV ×3 (08:19→16:45)
[2023-10-09] MEDS: NEURONTIN 800 MG PO (08:19)
[2023-10-09] MEDS: EFFEXOR XR 225 MG PO (08:19)
[2023-10-09] MEDS: SINEQUAN PO (08:27)
[2023-10-09 08:28] LABS: Hematocrit 36.3 % (37.0-47.0); Hemoglobin 11.6 g/dL (12.0-16.0); Mean Corpuscular Hgb 26.2 pg (27.0-31.0); Mean Corpuscular Volume 81.9 fL (81.0-99.0); Mean Platelet Volume 10.2 fL (7.4-10.4); Platelet Count 300 10^3/uL (130-400); Red Blood Cell Count 4.43 10^6/uL (4.20-5.40); Red Cell Dist. Width 15.6 % (11.5-14.5)
[2023-10-09] MEDS: LR 1000 IV (08:33)
[2023-10-09 08:48] LABS: Blood Urea Nitrogen 11 mg/dl (7-17); Calcium 8.5 mg/dl (8.4-10.2); Carbon Dioxide 27 mmol/L (22-30); Chloride 103 mmol/L (98-107); Estimated Creatinine Clearance > 125 ml/min; Glucose 118 mg/dl (70-99); Magnesium 2.5 mg/dl (1.6-2.3); Potassium 4.4 mmol/L (3.5-5.1); Sodium 136 mmol/L (135-145); eGFR > 60.00
--- NOTE | 2023-10-09 12:33 | W.PN.HOSP.TC ---
Today's Communication/Plan
-
cont steroids, nebs, tamiflu
anticipate weaning steroids tomorrow
incentive hortensia
Assessment / Plan
Assessment / Plan
Physical Exam
General: Other (appears anxious, mildly tachypneic )
Respiratory: Other (tachypneic, rhonchorous b/l ); No Wheezes
Cardiac: S1/S2 and Tachycardia
GI: Soft and Non Tender
Musculoskeletal: Other (b/l trace edema )
Skin: Warm and Dry; No Rash
Neuro: AO x 3
Psych: Calm
Ms. Jing Mueller is a 27 yo woman with hx anxiety/depression, trapped left lower lung s/p resection 2018 (with post-op chronic symptoms of chest pain and shortness of breath), complex regional pain syndrome, recent ER visit 10/04 for bronchitis
and pain flare presents to the ER with continued wheezing and shortness of breath.�
Influenza
Sepsis
Acute Bronchitis
-admit to telemetry
-given nausea/vomiting and poor appetite will give IVF
-Tamiflu
� Solu-Medrol 60 mg Q8h, anticipate starting to wean tomorrow
-standing duonebs
-IV Zofran PRN
Hx trapped left lower lung s/p resection 2018
Complex regional pain syndrome
-continue dilaudid started recent ER visit
Anxiety/Depression
-patient hasn't taken meds in several days 2/2 nausea
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
DVT PPx lovenox subQ
FULL CODE
Anticipated Discharge: > 48 hours
Subjective/Interval History
-
Date of Service: October 09, 2023
Feels better
Objective Data
-
Labs:
Laboratory Results
10/09/23
06:53
WBC 5.0
Hgb 11.6 L
Hct 36.3 L
Plt Count 300 D
Sodium 136
Potassium 4.4
Chloride 103
Carbon Dioxide 27
BUN 11
Creatinine 0.8
Glucose 118 H
Calcium 8.5
Vital Signs:
Vital Signs
Temp Pulse Resp BP Pulse Ox
98.2 F 82 18 111/62 96
10/09/23 11:00 10/09/23 11:24 10/09/23 11:24 10/09/23 11:00 10/09/23 11:24
I&O
10/08/23 10/09/23 10/10/23
06:59 06:59 06:59
Intake Total 4020 / 4020 2410 / 2410
Output Total 400 / 400
Balance 4020 / 4020 2009
Review of Systems
-
History Source: Patient
All other systems: Not reviewed unless documented
Data Reviewed
-
Diagnostic Radiology: Image personally visualized and interpreted and Report Reviewed by me
CT Scan: Image personally visualized and interpreted
Labs: Labs Reviewed by me
[2023-10-09] MEDS: LOVENOX 40 MG SC (16:45)
[2023-10-09] MEDS: SINEQUAN 150 MG PO (21:31)
[2023-10-09] MEDS: NEURONTIN 1600 MG PO (21:32)
[2023-10-10] MEDS: SOLU-MEDROL PF 60 MG IV ×3 (00:14→19:48)
[2023-10-10 03:11] VITALS: BP 110/62
[2023-10-10] MEDS: DILAUDID 0.5 MG IV ×4 (04:11→23:34)
[2023-10-10] MEDS: ZOFRAN 4 MG IV ×4 (04:13→23:34)
[2023-10-10 07:00] VITALS: BP 123/70
[2023-10-10 07:09] LABS: Hematocrit 34.8 % (37.0-47.0); Hemoglobin 11.2 g/dL (12.0-16.0); Mean Corp Hgb Conc. 32.2 g/dL (33.0-37.0); Mean Corpuscular Hgb 26.2 pg (27.0-31.0); Mean Corpuscular Volume 81.5 fL (81.0-99.0); Platelet Count 321 10^3/uL (130-400); Red Blood Cell Count 4.27 10^6/uL (4.20-5.40); Red Cell Dist. Width 15.1 % (11.5-14.5); White Blood Cell Count 7.3 10^3/uL (4.8-10.8)
[2023-10-10 07:15] LABS: Blood Urea Nitrogen 18 mg/dl (7-17); Calcium 8.5 mg/dl (8.4-10.2); Carbon Dioxide 27 mmol/L (22-30); Chloride 102 mmol/L (98-107); Estimated Creatinine Clearance > 125 ml/min; Glucose 135 mg/dl (70-99); Potassium 4.5 mmol/L (3.5-5.1); Sodium 135 mmol/L (135-145); eGFR > 60.00
[2023-10-10] MEDS: DUONEB 3 ML INH ×4 (07:28→19:38)
[2023-10-10] MEDS: EFFEXOR XR 225 MG PO (07:51)
[2023-10-10] MEDS: NEURONTIN 800 MG PO (07:51)
[2023-10-10] MEDS: TAMIFLU 75 MG PO ×2 (07:52→19:47)
[2023-10-10] MEDS: SINEQUAN PO (07:52)
[2023-10-10] MEDS: FLUSH (NSS) 2 FLUSH IV ×3 (07:54→16:55)
[2023-10-10 11:10] VITALS: BP 140/79
--- NOTE | 2023-10-10 11:50 | W.PN.HOSP.TC ---
Today's Communication/Plan
-
wean solumedrol to 60mg q12h
duonebs
Assessment / Plan
Assessment / Plan
Physical Exam
General: Other (appears anxious, mildly tachypneic )
Respiratory: Other (tachypneic, rhonchorous b/l ); No Wheezes
Cardiac: S1/S2 and Tachycardia
GI: Soft and Non Tender
Musculoskeletal: Other (b/l trace edema )
Skin: Warm and Dry; No Rash
Neuro: AO x 3
Psych: Calm
Ms. Jing Mueller is a 27 yo woman with hx anxiety/depression, trapped left lower lung s/p resection 2018 (with post-op chronic symptoms of chest pain and shortness of breath), complex regional pain syndrome, recent ER visit 10/04 for bronchitis
and pain flare presents to the ER with continued wheezing and shortness of breath.�
Influenza
Sepsis
Acute Bronchitis
-admit to telemetry
-given nausea/vomiting and poor appetite will give IVF
-Tamiflu
� Wean Solu-Medrol 60 mg to q12h today, wean as tolerated; hopeful to wean in the next 24-48 hours
-Moreso upper airway wheezing than lower airway at this time
-standing duonebs
-Incentive Mike, Acapella, early ambulation
-IV Zofran PRN
-Procal negative, hold off on abx
Hx trapped left lower lung s/p resection 2018
Complex regional pain syndrome
-continue dilaudid started recent ER visit
Anxiety/Depression
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
DVT PPx lovenox subQ
FULL CODE
Anticipated Discharge: 24 - 48 hours
Subjective/Interval History
-
Date of Service: October 10, 2023
Mild improvement today
Objective Data
-
Labs:
Laboratory Results
10/10/23
05:49
WBC 7.3
Hgb 11.2 L
Hct 34.8 L
Plt Count 321
Sodium 135
Potassium 4.5
Chloride 102
Carbon Dioxide 27
BUN 18 H
Creatinine 0.8
Glucose 135 H
Calcium 8.5
Vital Signs:
Vital Signs
Temp Pulse Resp BP Pulse Ox
98 F 78 15 140/79 92
10/10/23 07:00 10/10/23 11:36 10/10/23 11:36 10/10/23 11:10 10/10/23 11:36
I&O
10/09/23 10/10/23 10/11/23
06:59 06:59 06:59
Intake Total 2410 / 2410 1200 / 1200
Output Total 400 / 400 400 / 400
Balance 2009 800 / 800
Review of Systems
-
History Source: Patient
All other systems: Not reviewed unless documented
Data Reviewed
-
Diagnostic Radiology: Image personally visualized and interpreted and Report Reviewed by me
CT Scan: Image personally visualized and interpreted
Labs: Labs Reviewed by me
--- NOTE | 2023-10-10 13:57 | PTCARENOTE ---
Pt on RA at 92%. Pt transfers to BSC and HR increases to 146. O2 reapplied for c/o SOB. Will cont to monitor.
[2023-10-10 15:00] VITALS: BP 121/75
[2023-10-10] MEDS: LOVENOX 40 MG SC (16:49)
--- NOTE | 2023-10-10 17:29 | PTCARENOTE ---
Pt's face is flushed. O2 agian reapplied for comfort.
[2023-10-10 19:30] VITALS: BP 126/76
[2023-10-10] MEDS: NEURONTIN 1600 MG PO (21:35)
[2023-10-10] MEDS: SINEQUAN 150 MG PO (21:35)
[2023-10-10 23:25] VITALS: BP 106/72
[2023-10-11 03:18] VITALS: BP 115/68
[2023-10-11] MEDS: DILAUDID 0.5 MG IV (05:35)
[2023-10-11] MEDS: ZOFRAN 4 MG IV ×2 (05:35→11:53)
[2023-10-11 06:22] LABS: Hematocrit 35.5 % (37.0-47.0); Hemoglobin 11.2 g/dL (12.0-16.0); Mean Corp Hgb Conc. 31.5 g/dL (33.0-37.0); Mean Corpuscular Hgb 26.4 pg (27.0-31.0); Mean Corpuscular Volume 83.5 fL (81.0-99.0); Mean Platelet Volume 10.1 fL (7.4-10.4); Platelet Count 334 10^3/uL (130-400); Red Blood Cell Count 4.25 10^6/uL (4.20-5.40); Red Cell Dist. Width 15.2 % (11.5-14.5); White Blood Cell Count 11.6 10^3/uL (4.8-10.8)
[2023-10-11 07:03] VITALS: BP 118/72
[2023-10-11 07:03] LABS: Blood Urea Nitrogen 22 mg/dl (7-17); Calcium 8.7 mg/dl (8.4-10.2); Carbon Dioxide 29 mmol/L (22-30); Chloride 99 mmol/L (98-107); Estimated Creatinine Clearance 120 ml/min; Glucose 124 mg/dl (70-99); Potassium 4.7 mmol/L (3.5-5.1); Sodium 136 mmol/L (135-145); eGFR > 60.00
[2023-10-11] MEDS: XOPENEX 1.25 MG INHALANT SOLUTION INH ×2 (07:22→13:17)
[2023-10-11] MEDS: NEURONTIN 800 MG PO (07:48)
[2023-10-11] MEDS: EFFEXOR XR 225 MG PO (07:48)
[2023-10-11] MEDS: SOLU-MEDROL PF 60 MG IV (07:49)
[2023-10-11] MEDS: SINEQUAN 150 MG PO (07:49)
[2023-10-11] MEDS: TAMIFLU 75 MG PO (07:49)
--- NOTE | 2023-10-11 08:13 | W.PN.HOSP.TC ---
Addendum entered and electronically signed by Crow Stern MD 10/11/23 16:56:
Total time spent on d/c = 52 min. This included today's physical exam, progress note, review of laboratory and diagnostic data, preparation of discharge documents and prescriptions, and discussions about the pt's hospital course and discharge plan
with the patient and other medical lab scientist involved in the patient's care.
Original Note:
Today's Communication/Plan
-
see bold
Assessment / Plan
Assessment / Plan
27 yo woman with hx anxiety/depression, trapped left lower lung s/p resection 2018 (with post-op chronic symptoms of chest pain and shortness of breath), complex regional pain syndrome, recent ER visit 10/04/23 for bronchitis and pain flare presents
to the ER with continued wheezing and shortness of breath.�
Pt seen and examined with nurse Ofelia Ward present at bedside:
Gen: NAD, AAOx3.
Eyes: EOMI, PERRLA, no scleral icterus.
Neck: supple.
CV: RRR, +S1/S2, no m/r/g.
Resp: CTAB, no rales, wheezes, or rhonchi.
Abd: +BS, soft, NT, ND
Skin: No rashes.
Neuro: CN 2-12 intact, non-focal.
Psych: Normal mood and affect.
Sepsis due to acute bronchitis due to acute influenza infection:
-cont Tamiflu
-stop Solumedrol as there is no indication for IV steroids and influenza infection
-cont Xopenex
-procal NEG, no indication for abx
-wean O2 as tolerated, home O2 eval
Other problems:
h/o trapped left lower lung s/p resection 2018
Complex regional pain syndrome: Currently on IV Dilaudid PRN. Narcotics are not indicated in chronic regional pain syndrome. She was given oral Dilaudid prior to admission. Because of this I will transition her off the IV Dilaudid and back onto
her oral Dilaudid prior to admission. This physician will not be prescribing her narcotics on discharge.
Anxiety/Depression: continue Doxepin, Venlafaxine, Gabapentin (patient states she takes this for anxiety and not for pain)
Morbid obesity due to excess calories: Encourage weight loss, affects all aspects of care
FULL/Lovenox
Anticipated Discharge: Today
Subjective/Interval History
-
Date of Service: October 11, 2023
No new complaints.
Objective Data
-
Labs:
Laboratory Results
10/11/23
05:02
WBC 11.6 H
Hgb 11.2 L
Hct 35.5 L
Plt Count 334
Sodium 136
Potassium 4.7
Chloride 99
Carbon Dioxide 29
BUN 22 H
Creatinine 0.9
Glucose 124 H
Calcium 8.7
Vital Signs:
Vital Signs
Temp Pulse Resp BP Pulse Ox
98.1 F 86 16 115/68 95
10/11/23 03:18 10/11/23 07:27 10/11/23 07:27 10/11/23 03:18 10/11/23 07:27
I&O
10/10/23 10/11/23 10/12/23
06:59 06:59 06:59
Intake Total 1200 / 1200 1422 / 1422
Output Total 400 / 400
Balance 800 / 800 1422 / 1422
--- NOTE | 2023-10-11 09:46 | PTCARENOTE ---
Pt on the commode expressing that she attempted to walk to the bathroom but became sob. O2 was removed for such transfer. Pulse ox 92-93% on RA with pt sitting on commode.
[2023-10-11 11:00] VITALS: BP 113/68
[2023-10-11] MEDS: DILAUDID 2 MG PO (11:53)
--- NOTE | 2023-10-11 12:09 | RESPNOTE ---
attempted a home O2 eval with the patient and she was unable to do it. patient was 94% resting on room air. she stood up out of bed and immediately felt short of breath, dizzy, and tingling in her legs. i was able to have patient take 3 steps and
she told me she did not feel well and needed to get back into bed. RN and MD aware.
--- NOTE | 2023-10-11 12:55 | CON.PUL ---
Consultation
Consultation Request
Date/Time Consultation Requested: 10-11-23
Date/Time Consultation Performed: 10-11-23
Requesting Provider: Hospitalist
Performing Provider: Dr Jimenez
Reason for Consultation: influenza
Medical History
-
Chief Complaint: dyspnea
History of Present Illness:
Mrs Jing Mueller is a 27/W adm 10-06 with persistent dyspnea in spite of CS prescribed at ER on 10-04.
Diagnosed with influenza, started on oseltamivir and also IV dexamethasone. Pulm consulted 10-11 for mild hypoxemia and influenza
At time of visit on O2 1L, POx 93%, in no overt resp distress, able to speak in full sentences. Feels dyspneic and experiences palpitations on activity
Reports h/o L sided lung sequestration, s/p L minithoracotomy for excision on 08-04-19 at [facility]
Past Medical History
Past Medical History: Other (see A&P for PMH/PSH)
Social History
Tobacco: Former Smoker
Alcohol: Occasional
Drug: None
Living: With Family
Family History
Family History: Reviewed & Not Pertinent
Allergies / Home Medications
Allergies
Allergy/AdvReac Type Severity Reaction Status Date / Time
oxycodone Allergy Nausea / Verified 10/04/23 07:27
Vomiting
Home Medications
Medication Instructions Recorded Confirmed Last Taken Type
doxepin 75 mg capsule 150 mg PO HS Mental Health/Anxiety 12/21/22 10/06/23 12/07/22 23:00 History
ondansetron 4 mg disintegrating 4 mg PO Q6H PRN nausea and 09/29/23 10/06/23 Unknown Rx
tablet vomiting #14 tabs
hydromorphone 2 mg tablet 2 mg PO Q6H PRN Pain #10 tabs 09/30/23 10/06/23 Unknown Rx
(Dilaudid)
albuterol sulfate 90 mcg/actuation 1 puff inhalation Q4HPRN PRN 10/04/23 10/06/23 Unknown Rx
aerosol inhaler (ProAir HFA) shortness of breath #8.5 grams
doxepin 150 mg capsule 150 mg PO DAILY Mental 10/06/23 10/06/23 Unknown History
Health/Anxiety
gabapentin 2,400 mg DAILY Pain 10/06/23 10/06/23 Unknown History
prednisone 20 mg tablet 20 mg PO BID Anti-Inflammatory 10/08/23 10/06/23 Unknown History
venlafaxine 75 mg capsule,extended 225 mg PO DAILY Mental 10/08/23 10/08/23 Unknown History
release 24 hr (Effexor XR) Health/Anxiety
Review of Systems
-
History Source: Patient
All other systems: Negative unless noted
Respiratory: Cough and Trouble Breathing
Neuro: Dizzy
Vitals / Labs / Diagnostic Testing
Vital Signs
Temp Pulse Resp BP Pulse Ox
98.1 F 91 18 113/68 95
10/11/23 11:00 10/11/23 11:00 10/11/23 11:00 10/11/23 11:00 10/11/23 11:00
Lab Data
10/11/23 05:02
10/11/23 05:02
Diagnostic Testing:
Physical Exam
-
HEENT: Normocephalic and Moist Mucous Membranes
Cardiovascular: Regular Rhythm, Murmur (n), Rub, Peripheral Edema (n) and JVD
Respiratory: Rhonchi and Non-Labored Respirations
GI: Soft, Non Distended and Non Tender
Neurology: Awake, AO x 3 and No Motor Deficits
Skin: Dry
General: Respiratory Distress (n)
Assessment
-
Assessment:
Mrs Jing Mueller is a 27/W adm 10-06 with persistent dyspnea in spite of CS prescribed at ER on 10-04. Diagnosed with influenza, started on oseltamivir and also IV dexamethasone. Pulm consulted 10-11 for mild hypoxemia and influenza
Impression:
Influenza
Bilateral posterior linear atelectasis
Chronic L posterior 6h rib operative fracture with overlying pleural nodule since at least Jul 2020
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
L sided lung sequestration, s/p L minithoracotomy for excision on 08-04-19 at [facility]
Complex regional pain syndrome, on dilaudid
Anxiety/depression
Former smoker
Morbid obesity
Plan:
O2 protocol
Per CM does not qualify for home O2, POx down to 90% on testing
D/w patient, could obtain home O2 as out of pocket expense, she declines
IS to continue, instructed on correct technique
Asp precs
OOB as tolerated
Complete 5 d tamiflu regimen and d/c, I see no indication to prolong course
Continue levalbuterol nebs tid
Transition to prn albuterol HFA (outpatient regimen)
Agree with observation off atbs and systemic CS
D/w Ms Irwin, her father and CM at bedside
--- NOTE | 2023-10-11 13:58 | W.PN.UPDATE ---
Update Note
Progress Note Update
As per respiratory therapy patient was not able to participate in home oxygen evaluation. As per the report patient got out of bed and became dizzy and short of breath. She had a tingling sensation in her legs, took 3 steps, and immediately needed
to get back in bed.
Patient's parents were updated on the patient's hospital course and current plan. As per nursing the patient was 90% on room air in bed. Patient will be seen in consultation by pulmonary. I also expressed concern that some of the patient's
symptoms are due to functional neurological disorder/psychosomatic symptoms/somatization. Psychiatry will also evaluate the patient. With weakness upon standing, physical therapy and Occupational Therapy have been consulted.
[2023-10-11 14:59] VITALS: BP 128/74; PULSE 87; O2SAT 93
[2023-10-11 15:02] VITALS: BP 118/76
[2023-10-11 15:08] VITALS: BP 128/74; PULSE 100; O2SAT 91
--- NOTE | 2023-10-11 15:50 | CM ---
PT has recommended outpatient PT when discharged. Will need script. Patient had O2 walk test and does not meet criteria for home O2. Spoke with patient and her father and they expressed understanding that no home O2 would be provided and paid for
by insurance. Discharge plan of care is home with no needs. Patient is not homebound and therefore not eligible for HH services.
--- NOTE | 2023-10-11 16:19 | W.PN.UPDATE ---
Update Note
Progress Note Update
Approached pt and explained the reason for psychiatric consult. Pt states she does not need a psychiatric consult, sees a psychiatrist for 1- hour sessions once a month, last session 2 weeks ago. Pt states she felt worse due to not being able to
take her medication for a few days due to nausea, which she states is brought on by pain. Clarified pt's dose of Doxepin- 150 mg HS; pt states she took it today because she thought she would sleep. Pt reports she is on Gabapentin for anxiety; also
states she has 'nerve damage' from a work injury.
Imp: Unspecified Anxiety, appears to be stabilizing with resumption of medication. Pt declines full consult
Rec: Outpatient follow-up/return to outpatient psychiatrist when medically cleared
--- NOTE | 2023-10-11 17:04 | W.DCSUMMARY ---
Discharge Summary
Discharge Data
Date of Admission: 10/07/23
Date of Discharge: 10/11/23
-
Pending Results: No
Hospital Course
Primary diagnoses:
Sepsis due to acute bronchitis due to acute influenza infection
Secondary diagnoses:
Anxiety
Depression
h/o trapped left lower lung s/p resection 2018
Minimal leukocytosis that was likely steroid-induced
Consultants:
Pulmonary
Psychiatry
Imaging:
CT chest w/IV: Bibasilar atelectasis versus scarring. New. Mild airspace disease in left lower lung field concerning for developing pneumonia. New. Clinical and laboratory correlation recommended. Hepatic fatty infiltration. Mild cardiomegaly.
Sepsis due to acute bronchitis due to acute influenza infection: The patient met sepsis criteria on admission. Imaging above and influenza A was positive. Patient was placed on Tamiflu. She was on IV Solu-Medrol which was stopped. Her
procalcitonin was negative and there was no indication for antibiotics. She was placed on nasal cannula oxygen. On the day of discharge she had been weaned to 1 L. She worked with physical therapy and was 90% on room air with ambulation. She did
not qualify for home oxygen but did request a prescription so she could pay [id number] for oxygen at home. The patient will complete 5 days of Tamiflu.
Complex regional pain syndrome: The patient had been prescribed Dilaudid prior to admission. She was on IV Dilaudid as needed while hospitalized. �Narcotics are not indicated in the management of chronic regional pain syndrome.� On discharge I
recommended that she wean off narcotic therapy with the assistance of her prescribing physician.
Morbid obesity due to excess calories: The patient's BMI was 46.0. Morbid obesity affects all aspects of care. Weight loss is encouraged.
Discharge Plan
-
Patient Disposition: Home (Routine Discharge)
Discharge Diagnosis/Procedures: Acute influenza infection
Condition: Good
Diet: Regular
Activity: As tolerated
Driving Restrictions: As prior to admission
Bathing Restrictions: None
Activity Restrictions/Additional Instructions:
I would recommend that you wean off narcotic therapy. Please discuss this with the prescribing physician.
Referrals:
Joselin Mullen PA-C [Family Provider] - in less than 1 week
Prescriptions:
New
oseltamivir 75 mg Capsule
75 mg PO BID Qty: 10 0RF
Rx Instructions:
last dose 10/11/23PM
gabapentin 400 mg Capsule
800 mg PO DAILY Qty: 60 0RF
gabapentin 400 mg Capsule
1,600 mg PO HS Qty: 120 0RF
Continued
doxepin 75 mg Capsule
150 mg PO HS
Patient Comments:
Patient takes medication as needed
ondansetron 4 mg tablet,disintegrating
4 mg PO Q6H PRN (Reason: nausea and vomiting) Qty: 14 0RF
hydromorphone [Dilaudid] 2 mg tablet
2 mg PO Q6H PRN (Reason: Pain) Qty: 10 0RF
albuterol sulfate [ProAir HFA] 90 mcg/actuation Hfa Aerosol Inhaler
1 puff INHALATION Q4HPRN PRN (Reason: shortness of breath) Qty: 8.5 0RF
doxepin 150 mg Capsule
150 mg PO DAILY
venlafaxine [Effexor XR] 75 mg Capsule,Extended Release 24hr
225 mg PO DAILY
Discontinued
gabapentin
2,400 mg DAILY
prednisone 20 mg tablet
20 mg PO BID
Discharge Orders:
Discharge Patient (As Directed); Ordered 10/11/23
Ordered By: Crow Stern
--- NOTE | 2023-10-11 17:39 | PTCARENOTE ---
pt d/c home. D/C instructions and medications to picker and packer from pharmacy reviewed with patient and her father. Iv pulled.
--- NOTE | 2023-10-12 09:39 | CM ---
Patient was discharged to home on 10/11/23 with outpatient physical therapy. Father transported patient home.
== END 2023-10-11 18:51 | disposition home or self-care (01) | DRG 872 ==
LOC: 2 NORTH 03:15
PROVIDERS: Clinical Nurse Specialist Family Health; Emergency Medicine; Internal Medicine; ADMITTING PHYSICIAN Student in an Organized Health Care Education/Training Program; ATTENDING PHYSICIAN Internal Medicine; CONSULT PHYSICIAN Internal Medicine Pulmonary Disease; EMERGENCY PHYSICIAN Emergency Medicine; FAMILY PHYSICIAN Physician Assistant Medical
DX: A41.9 Sepsis, unspecified organism (principal); Z68.42 Body mass index [BMI] 45.0-49.9, adult; J20.9 Acute bronchitis, unspecified; J10.1 Influenza due to other identified influenza virus with other respiratory manifestations; E66.01 Morbid (severe) obesity due to excess calories; F41.9 Anxiety disorder, unspecified; F32.A Depression, unspecified
CPT/HCPCS: 71046; 71260; 80048; 80053; 83735; 83880; 84100; 84145; 84484; 84703; 85025; 85027; 87502; 87811; 93005; 94640; 96374; 96375; 97162; 97166; 99285; Q9967

== ENCOUNTER 2023-10-31 18:21 | Emergency (ER) | payer SELFPAY ==
[2023-10-31 18:26] VITALS: BP 135/87; BMI 46.4
--- NOTE | 2023-10-31 19:58 | ED.GENMED ---
History of Present Illness
General
Chief Complaint: Generalized Pain
Source: patient
Exam Limitations: none
Time Seen by Provider: 10/31/23 19:07
Nursing documentation reviewed up to this point in time: agreed with
Travel History
Have you had any contact with someone who has COVID-19?: No
Do you have any symptoms of coronavirus? Fever > 100 degrees, chills, cough, shortness of breath, sore throat, loss of taste or smell, muscle aches, or headache?: No
History of Present Illness
History of Present Illness:
27-year-old female with complex regional pain syndrome treated treated at pain management in [facility] presents to the ER for evaluation. Patient reports she is due to see pain management tomorrow however complains of her normal
chronic pain in her right shoulder that radiates down to her right hand. She reports pain management does not give her narcotics they only do blocks for pain. She complains of pain not relieved with Tylenol ibuprofen.
No new injury/trauma.
Patient reports she was here September 29 and received a prescription for Dilaudid.
Past History
Past History
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
ED Past Surgical History: Cholecystectomy, , Gynecological (Ovarian cyst, 2 miscarriage's, ), Tonsilectomy and Other (LLL resection)
Social History
Tobacco: Former smoker
Alcohol: Occasional
Drug: None
Personal: (Engaged)
Living: with family
Employment: Employed
Family History
Family History: Other (Father with a 'stiff heart'. Family history of diabetes depression and anxiety grandfather with a stent in valve replacement)
Review of Systems
Review of Systems
Allergies reviewed?: Yes
All Other Systems: ROS reviewed and negative except as documented in HPI and ROS
Constitutional: Reports no symptoms; Denies fever, fatigue or chills
EENT: Reports no symptoms
Respiratory: Reports no symptoms
Cardiac: Reports no symptoms
ABD/GI: Reports no symptoms
Musculoskeletal: Reports other (chronic pain to right arm )
Skin: Reports no symptoms
Neurological: Reports no symptoms
Psychiatric: Reports no symptoms
Phy Exam
General Physical Exam
General Presentation: no apparent distress
General age: appears stated age
General Skin: warm and dry
General Habitus: normal
General Mental: alert
General Hydration: appears well hydrated
Neurological Exam
Neurological Exam: alert and oriented x3
Musculoskeletal Exam
Musculoskeletal Exam: full ROM (but pt c/o of pain with movement this is baseline for pt )
Skin Exam
Skin Exam: normal color and warm/dry
Psychiatric Exam
Psychiatric Exam: normal mood/affect
Course
Orders/Labs/Results
Orders:
Orders
10/31/23 19:50
Ketorolac [Toradol] 30 mg IM NOW STA
Vital Signs
Initial and Last Documented VS:
Initial Vital Signs
Temp Pulse Resp BP Pulse Ox
98.5 F 85 16 135/87 98
10/31/23 18:26 10/31/23 18:26 10/31/23 18:26 10/31/23 18:26 10/31/23 18:26
Last Documented Vital Signs
Temp Pulse Resp BP Pulse Ox
98.5 F 85 16 135/87 98
10/31/23 18:26 10/31/23 18:26 10/31/23 18:26 10/31/23 18:26 10/31/23 18:26
MDM/Problems Addressed
Differential Diagnosis Includes:
Not limited to exacerbation of chronic pain
MDM/Problems Addressed:
Patient has chronic pain related to complex regional pain syndrome and is followed with pain management in [place] infection has an appointment tomorrow morning at 8 AM. She presented to the ER complaining of pain. She was given IM dose of
Toradol here in the ER. I Did explain to patient that this will last around 6 to 8 hours and she should follow-up with her dip painter tomorrow as scheduled. I did review with patient that we do not treat chronic pain. She is
understanding of this.
Chronic conditions affecting care:
Complex regional pain syndrome
*Pulse Oximetry
Patient hypoxic: no
*Critical Care Note
Total Time (30-74mins, 75-104mins- exclusive of procedures): Not Applicable
ED Attending Note
-
Portions of this chart may have been created with voice recognition software.� Occasional wrong word or��sound alike� substitutions may have occurred due to the inherent limitations of voice recognition software.
Discharge Plan
Departure
Patient Disposition: Home (Routine Discharge)
Date of Disposition: 10/31/23
Time of Disposition: 20:27
Patient with high blood pressure during this ER visit?: Yes
Condition: Fair
Covid-19: Not Applicable
Discharge Problem:
Chronic pain
Instructions: Chronic Pain (DC), BLOOD PRESSURE
Prescriptions:
No Action
doxepin 75 mg Capsule
150 mg PO HS
Patient Comments:
Patient takes medication as needed
ondansetron 4 mg tablet,disintegrating
4 mg PO Q6H PRN (Reason: nausea and vomiting) Qty: 14 0RF
hydromorphone [Dilaudid] 2 mg tablet
2 mg PO Q6H PRN (Reason: Pain) Qty: 10 0RF
albuterol sulfate [ProAir HFA] 90 mcg/actuation Hfa Aerosol Inhaler
1 puff INHALATION Q4HPRN PRN (Reason: shortness of breath) Qty: 8.5 0RF
doxepin 150 mg Capsule
150 mg PO DAILY
venlafaxine [Effexor XR] 75 mg Capsule,Extended Release 24hr
225 mg PO DAILY
oseltamivir 75 mg Capsule
75 mg PO BID Qty: 10 0RF
Rx Instructions:
last dose 10/11/23PM
gabapentin 400 mg Capsule
800 mg PO DAILY Qty: 60 0RF
gabapentin 400 mg Capsule
1,600 mg PO HS Qty: 120 0RF
Referrals:
Joselin Mullen PA-C [Family Provider] -
Activity Restrictions/Additional Instructions:
Follow-up with your dip painter as scheduled tomorrow.
Interventions
Interventions:
*Risk Screen - Suicide Last Done: 10/31/23 18:28
*General Assessment Last Done: 10/31/23 20:06
*Neglect/Abuse Screening Last Done: 10/31/23 18:28
*ED COVID-19 Vaccine History Last Done: 10/31/23 18:26
[2023-10-31] MEDS: TORADOL 30 MG IM (20:01)
== END 2023-10-31 20:38 | disposition home or self-care (01) ==
LOC: EMR 18:21
PROVIDERS: EMERGENCY PHYSICIAN Emergency Medicine; FAMILY PHYSICIAN Physician Assistant Medical
DX: G89.29 Other chronic pain (principal); M25.511 Pain in right shoulder; J45.909 Unspecified asthma, uncomplicated; F41.9 Anxiety disorder, unspecified; F32.A Depression, unspecified; Z83.3 Family history of diabetes mellitus; Z87.891 Personal history of nicotine dependence; Z90.49 Acquired absence of other specified parts of digestive tract
CPT/HCPCS: 99282; 96372

== ENCOUNTER 2024-01-26 22:31 | Emergency (ER) | payer OTHER, SELFPAY ==
[2024-01-26 22:34] VITALS: BP 152/97
[2024-01-26 22:47] LABS: % Basophils 0.2 % (0-2); % Immature Granulocytes 0.3 % (0-0.5); % Lymphocytes 47.9 % (20.5-51.1); % Monocytes 5.8 % (1.7-9.3); % Neutrophils 45.8 % (42.2-75.2); Absolute Monocytes 0.6 10^3/uL (0.1-0.6); Absolute Neutrophils 4.8 10^3/uL (1.4-6.5); Hematocrit 35.7 % (37.0-47.0); Hemoglobin 11.7 g/dL (12.0-16.0); Mean Corp Hgb Conc. 32.8 g/dL (33.0-37.0); Mean Corpuscular Hgb 26.6 pg (27.0-31.0); Mean Corpuscular Volume 81.1 fL (81.0-99.0); Mean Platelet Volume 10.3 fL (7.4-10.4); Nucleated Red Blood Cells % 0 %; Platelet Count 265 10^3/uL (130-400); Red Cell Dist. Width 14.5 % (11.5-14.5); White Blood Cell Count 10.5 10^3/uL (4.8-10.8)
[2024-01-26 23:15] LABS: ALT (SGPT) 18 U/L (0-35); AST (SGOT) 17 U/L (14-36); Albumin 4.2 g/dl (3.5-5.0); Alkaline Phosphatase 63 U/L (38-126); Blood Urea Nitrogen 14 mg/dl (7-17); Carbon Dioxide 28 mmol/L (22-30); Chloride 103 mmol/L (98-107); Glucose 102 mg/dl (70-99); Potassium 4.7 mmol/L (3.5-5.1); Sodium 138 mmol/L (135-145); Total Bilirubin 0.4 mg/dl (0.2-1.3); Total Protein 7.2 g/dl (6.3-8.2); eGFR > 60.00
--- NOTE | 2024-01-27 00:14 | ED.GENMED ---
History of Present Illness
General
Chief Complaint: Musculo-Skeletal Complaint
Source: patient
Exam Limitations: none
Time Seen by Provider: 01/27/24 00:07
Travel History
Have you had any contact with someone who has COVID-19?: No
Do you have any symptoms of coronavirus? Fever > 100 degrees, chills, cough, shortness of breath, sore throat, loss of taste or smell, muscle aches, or headache?: No
History of Present Illness
History of Present Illness:
28-year-old female with a history of chronic regional pain syndrome presents with a flareup of her symptoms. Severe pain in her right shoulder both legs. This is the typical locations for her flareup. She had nausea vomiting as No meds or any
fluids down x 3 to 4 days. Her pain management physician called in a prescription for Medrol dose pack. She was able to take 6 tablets 3 to 4 days ago but has not taken any further meds. No fever no chest pain no other complaints
Past History
Past History
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
ED Past Surgical History: Cholecystectomy, , Gynecological (Ovarian cyst, 2 miscarriage's, ), Tonsilectomy and Other (LLL resection)
Social History
Tobacco: Former smoker
Alcohol: Occasional
Drug: None
Personal: (Engaged)
Living: with family
Employment: Employed
Family History
Family History: Other (Father with a 'stiff heart'. Family history of diabetes depression and anxiety grandfather with a stent in valve replacement)
Review of Systems
Review of Systems
All Other Systems: Not applicable
Constitutional: Denies fever
Respiratory: Reports no symptoms
Cardiac: Reports no symptoms
Phy Exam
Physical Exam
Physical Exam:
GENERAL: Alert and oriented in no apparent distress, but appears uncomfortable
EYE: Orbits normal.
NECK: Supple
CARDIAC: Regular rate and rhythm without any obvious murmurs.
LUNGS: Clear breath sounds,normal
ABDOMEN: Soft, without focal tenderness or distention
NEUROLOGICAL: Alert and oriented , grossly non-focal
SKIN: Warm and dry, no rash or lesion, no discoloration, skin intact.
MUSCULOSKELETAL: Patient has a blanket covering her right shoulder '. Some increased pain with right shoulder flexion and abduction. No obvious severe point tenderness. No warmth. Mild diffuse tenderness to her legs. No focal tenderness no
erythema or warmth. Good color.
PSYCH: Normal and appropriate interaction.
Course
Orders/Labs/Results
Orders:
Orders
01/26/24 22:41
CBC/With Diff [Complete Blood Count/With Diff] Urgent
CMP [Comprehensive Metabolic Panel] Urgent
HCG, Serum Qualitative Screen Urgent
Comment: ADDED
Lipase Urgent
Comment: ADDED
01/27/24 00:12
Add On- LAB Urgent
Tests Added?: lipase,qual bhcg
0.9% Sodium Chloride 1000 ml [Nss] 1,000 ml IV BOLUS
Ketorolac [Toradol] 15 mg IV NOW STA
Ondansetron Injectable [Zofran] 4 mg IV NOW STA
01/27/24 00:13
Acetaminophen 1000MG/100Ml [Ofirmev] 1,000 mg in 100 ml IV ONCE
Acetaminophen IV Indication:: ED Narcotic Naive Pt-ONCE
Dexamethasone Sod Phosphate [Decadron] 6 mg IV NOW STA
01/27/24 01:58
Diphenhydramine [Benadryl] 25 mg IV NOW STA
Prochlorperazine [Compazine] 5 mg IV NOW STA
Abnormal Lab Results
01/26/24
22:41
Hgb 11.7 L g/dL
(12.0-16.0)
Hct 35.7 L %
(37.0-47.0)
MCH 26.6 L pg
(27.0-31.0)
MCHC 32.8 L g/dL
(33.0-37.0)
Absolute Lymphs (auto) 5.0 H 10^3/uL
(1.2-3.4)
Glucose 102 H mg/dl
(70-99)
01/26/24 22:41
01/26/24 22:41
Vital Signs
Initial and Last Documented VS:
Initial Vital Signs
Temp Pulse Resp BP Pulse Ox
98.3 F 79 20 152/97 97
01/26/24 22:34 01/26/24 22:34 01/26/24 22:34 01/26/24 22:34 01/26/24 22:34
Last Documented Vital Signs
Temp Pulse Resp BP Pulse Ox
98.3 F 79 20 152/97 97
01/26/24 22:34 01/26/24 22:34 01/26/24 22:34 01/26/24 22:34 01/26/24 22:34
MDM/Problems Addressed
Differential Diagnosis Includes:
Symptoms consistent with a flare of her chronic regional pain issue. Nothing to support any other serious etiology. Will give fluids Toradol IV Tylenol and steroids.
*Critical Care Note
Total Time (30-74mins, 75-104mins- exclusive of procedures): Not Applicable
Data Reviewed
Review of Other/Old Records Reveals: Labs, Testing and Other (Previous ER records)
Update Note
Update Note:
Patient is remained medically stable and nontoxic. She had asked the nurse about a dose of Dilaudid which she states is the only thing that works. However given this is a chronic pain issue I feel it does not of best interest to use narcotics for
chronic pain. This was discussed with the patient. She still complains of some nausea. Will give a dose of Compazine with Benadryl she will get a ride home by her and will follow-up with her pain management in the morning
ED Attending Note
-
Portions of this chart may have been created with voice recognition software.� Occasional wrong word or��sound alike� substitutions may have occurred due to the inherent limitations of voice recognition software.
Discharge Plan
Departure
Patient Disposition: Home (Routine Discharge)
Date of Disposition: 01/27/24
Time of Disposition: 01:59
Patient with high blood pressure during this ER visit?: Yes
Discharge Problem:
Nausea vomiting, Exacerbation of chronic pain
Instructions: Chronic pain, Nausea and vomiting in adults, BLOOD PRESSURE
Prescriptions:
No Action
doxepin 75 mg Capsule
150 mg PO HS
Patient Comments:
Patient takes medication as needed
ondansetron 4 mg tablet,disintegrating
4 mg PO Q6H PRN (Reason: nausea and vomiting) Qty: 14 0RF
hydromorphone [Dilaudid] 2 mg tablet
2 mg PO Q6H PRN (Reason: Pain) Qty: 10 0RF
albuterol sulfate [ProAir HFA] 90 mcg/actuation Hfa Aerosol Inhaler
1 puff INHALATION Q4HPRN PRN (Reason: shortness of breath) Qty: 8.5 0RF
doxepin 150 mg Capsule
150 mg PO DAILY
venlafaxine [Effexor XR] 75 mg Capsule,Extended Release 24hr
225 mg PO DAILY
oseltamivir 75 mg Capsule
75 mg PO BID Qty: 10 0RF
Rx Instructions:
last dose 10/11/23PM
gabapentin 400 mg Capsule
800 mg PO DAILY Qty: 60 0RF
gabapentin 400 mg Capsule
1,600 mg PO HS Qty: 120 0RF
Referrals:
Joselin Mullen PA-C [Family Provider] - Follow up in 2-3 days
Activity Restrictions/Additional Instructions:
Call your pain management physician first thing in the morning
Interventions
Interventions:
*Risk Screen - Suicide Last Done: 01/26/24 22:34
*General Assessment Last Done: 01/26/24 22:34
*Neglect/Abuse Screening Last Done: 01/26/24 22:34
Discharge Date and Time
Print Language: MOLDOVAN
[2024-01-27] MEDS: TORADOL 15 MG IV (00:25)
[2024-01-27] MEDS: NSS 1000 IV (00:25)
[2024-01-27] MEDS: ZOFRAN 4 MG IV (00:26)
[2024-01-27] MEDS: DECADRON 6 MG IV (00:28)
[2024-01-27] MEDS: OFIRMEV 100 IV (00:36)
[2024-01-27 01:00] LABS: HCG, Serum Qualitative Screen Negative
[2024-01-27 01:19] LABS: Lipase 92 U/L (23-300)
[2024-01-27] MEDS: BENADRYL 25 MG IV (02:02)
[2024-01-27] MEDS: COMPAZINE 5 MG IV (02:03)
[2024-01-27 02:08] VITALS: BP 113/56
== END 2024-01-27 02:22 | disposition home or self-care (01) ==
LOC: EMR 22:31
PROVIDERS: EMERGENCY PHYSICIAN Emergency Medicine; FAMILY PHYSICIAN Physician Assistant Medical
DX: R11.2 Nausea with vomiting, unspecified (principal); G89.29 Other chronic pain; J45.909 Unspecified asthma, uncomplicated; F41.8 Other specified anxiety disorders; Z83.3 Family history of diabetes mellitus; Z87.891 Personal history of nicotine dependence; Z90.49 Acquired absence of other specified parts of digestive tract
CPT/HCPCS: 99283; 96374; 96375; 96361; 80053; 83690; 84703; 85025

== ENCOUNTER → 2024-02-07 14:33 | Outpatient (REF) | payer OTHER, SELFPAY | LOC: RAD 14:33 | PROVIDERS: ATTENDING PHYSICIAN Physician Assistant Medical | DX: R06.2 Wheezing (principal) | CPT/HCPCS: 71046 ==

== ENCOUNTER → 2024-02-11 07:35 | Outpatient (REF) | payer OTHER, SELFPAY | LOC: EMG 07:35 | PROVIDERS: ATTENDING PHYSICIAN Psychiatry & Neurology Neurology; FAMILY PHYSICIAN Physician Assistant Medical | DX: R94.130 Abnormal response to nerve stimulation, unspecified (principal); R20.0 Anesthesia of skin | CPT/HCPCS: 95886; 95910 ==

== ENCOUNTER → 2024-03-08 07:15 | Outpatient (REF) | payer OTHER, SELFPAY | LOC: RAD 07:15 | PROVIDERS: ATTENDING PHYSICIAN Psychiatry & Neurology Neurology; FAMILY PHYSICIAN Physician Assistant Medical | DX: I73.9 Peripheral vascular disease, unspecified (principal) | CPT/HCPCS: 93922 ==

== ENCOUNTER → 2024-03-23 07:00 | Outpatient (REF) | payer OTHER, SELFPAY | LOC: MRI 3T 07:00 | PROVIDERS: ATTENDING PHYSICIAN Psychiatry & Neurology Neurology | DX: R51.9 Headache, unspecified (principal); M54.14 Radiculopathy, thoracic region | CPT/HCPCS: 70551; 72146 ==

== ENCOUNTER 2024-03-30 16:22 | Emergency (ER) | payer OTHER, SELFPAY ==
[2024-03-30 16:24] VITALS: BP 139/84
[2024-03-30 17:03] VITALS: BP 120/91
[2024-03-30 17:04] VITALS: BMI 46.2
[2024-03-30 17:13] LABS: % Basophils 0.1 % (0-2); % Immature Granulocytes 0.2 % (0-0.5); % Lymphocytes 31.2 % (20.5-51.1); % Monocytes 6.1 % (1.7-9.3); % Neutrophils 62.4 % (42.2-75.2); Absolute Lymphocytes 2.9 10^3/uL (1.2-3.4); Absolute Monocytes 0.6 10^3/uL (0.1-0.6); Absolute Neutrophils 5.7 10^3/uL (1.4-6.5); Hematocrit 34.9 % (37.0-47.0); Hemoglobin 11.4 g/dL (12.0-16.0); Mean Corp Hgb Conc. 32.7 g/dL (33.0-37.0); Mean Corpuscular Hgb 27.1 pg (27.0-31.0); Mean Corpuscular Volume 82.9 fL (81.0-99.0); Mean Platelet Volume 11.1 fL (7.4-10.4); Nucleated Red Blood Cells % 0 %; Platelet Count 217 10^3/uL (130-400); Red Blood Cell Count 4.21 10^6/uL (4.20-5.40); Red Cell Dist. Width 15.2 % (11.5-14.5); White Blood Cell Count 9.1 10^3/uL (4.8-10.8)
[2024-03-30 17:22] LABS: ALT (SGPT) 20 U/L (0-35); AST (SGOT) 19 U/L (14-36); Albumin 4.3 g/dl (3.5-5.0); Alkaline Phosphatase 65 U/L (38-126); Blood Urea Nitrogen 7 mg/dl (7-17); Calcium 9.6 mg/dl (8.4-10.2); Carbon Dioxide 29 mmol/L (22-30); Estimated Creatinine Clearance > 125 ml/min; Glucose 89 mg/dl (70-99); Lipase 96 U/L (23-300); Total Bilirubin 0.4 mg/dl (0.2-1.3); Total Protein 6.8 g/dl (6.3-8.2); eGFR > 60.00
[2024-03-30 17:43] LABS: HCG, Serum Qualitative Screen Negative
[2024-03-30 17:47] LABS: Chloride 103 mmol/L (98-107); Potassium 4.1 mmol/L (3.5-5.1); Sodium 137 mmol/L (135-145)
--- NOTE | 2024-03-30 17:56 | ED.GENMED ---
History of Present Illness
General
Chief Complaint: Abdominal Symptoms
Source: patient
Time Seen by Provider: 03/30/24 17:15
History of Present Illness
History of Present Illness:
28-year-old female with past medical history of CRPS, anxiety and depression, migraine disorder presenting to the emergency department for evaluation of GI symptoms have been ongoing for the last 2 months, worse over the last 2 weeks, unable to get
an appointment with GI. Discussed symptoms with primary care who ordered blood work but patient states she is still not feeling better. Patient had been started on 4 mg Zofran ODT as needed 2 months ago and symptoms started but when they started
to worsen this was increased to 8 mg but patient still notes no relief. She takes Dilaudid for her CRPS and notes that she was recently taken off trazodone and was started on Remeron recently. Patient states last menstrual period was 3 weeks ago
but has no concern for as she states she is not sexually active. She denies any fevers or other infectious symptoms. She also notes some intermittent loose stool as well as decreased p.o. intake to both solids and liquids.
Past History
Past History
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
ED Past Surgical History: Cholecystectomy, , Gynecological (Ovarian cyst, 2 miscarriage's, ), Tonsilectomy and Other (LLL resection)
Social History
Tobacco: Former smoker
Alcohol: Occasional
Drug: None
Personal: (Engaged)
Living: with family
Employment: Employed
Family History
Family History: Other (Father with a 'stiff heart'. Family history of diabetes depression and anxiety grandfather with a stent in valve replacement)
Review of Systems
Review of Systems
All Other Systems: ROS reviewed and negative except as documented in HPI and ROS
Phy Exam
Physical Exam
Physical Exam:
GENERAL: Alert , in no apparent distress but is continuously grimacing
EYE: clear conjunctiva b/l
HEAD: NCAT
ENT: o/p clr, mmm.
CARDIAC: Regular rate and rhythm .
LUNGS: Clear breath sounds bilaterally, no acute respiratory distress, no wheezes/rales/rhonchi
ABDOMEN: Soft, diffuse and generalized ttp, no r/g, no cvat
NEUROLOGICAL: Alert and oriented
SKIN: Warm and dry, skin intact.
MUSCULOSKELETAL: No edema, well perfused.
PSYCH: Normal and appropriate interaction.
Scores
Heart Failure Risk
Heart Failure Risk Score: Not Applicable
Heart Score for Chest Pain Patients
STEMI patient?: Not applicable
Withdrawal Assessment of Alcohol
Withdrawal Assessment Completed?: Not applicable
Course
Orders/Labs/Results
Orders:
Orders
03/30/24 17:00
Complete Blood Count/With Diff Urgent
Comprehensive Metabolic Panel Urgent
HCG, Serum Qualitative Screen Urgent
Comment: ADD ON
Lipase Urgent
03/30/24 17:15
Add On- LAB Urgent
Tests Added?: HCG qual
03/30/24 17:44
CT Abd/pelvis W Iv Cont Urgent
Comment:
Reason For Exam: diffuse abd pain
0.9% Sodium Chloride 1000 ml [Nss] 1,000 ml IV BOLUS
Prochlorperazine [Compazine] 10 mg IV NOW STA
03/30/24 18:19
HYDROmorphone [Dilaudid] 1 mg IV NOW STA
Abnormal Lab Results
03/30/24
17:00
Hgb 11.4 L g/dL
(12.0-16.0)
Hct 34.9 L %
(37.0-47.0)
MCHC 32.7 L g/dL
(33.0-37.0)
RDW 15.2 H %
(11.5-14.5)
MPV 11.1 H fL
(7.4-10.4)
03/30/24 17:00
03/30/24 17:00
Vital Signs
Initial and Last Documented VS:
Initial Vital Signs
Temp Pulse Resp BP Pulse Ox
98.5 F 104 18 139/84 99
03/30/24 16:24 03/30/24 16:24 03/30/24 16:24 03/30/24 16:24 03/30/24 16:24
Last Documented Vital Signs
Temp Pulse Resp BP Pulse Ox
98.5 F 104 18 126/70 99
03/30/24 16:24 03/30/24 16:24 03/30/24 16:24 03/30/24 18:00 03/30/24 16:24
MDM/Problems Addressed
Differential Diagnosis Includes:
exacerbation of chronic pain, electrolyte disturbance, given duration of symptoms less concern for surgical abdomen
MDM/Problems Addressed:
28-year-old female presenting the emergency department for evaluation of abdominal pain ongoing for about 2 months, symptoms gradually worsening. Attempted to see GI but was unable to do so until June. No relief with medications prescribed by
primary care provider. Patient vital signs reassuring. Lab work had been initiated in triage and is also reassuring. Overall given patient's past medical history I am more suspicious that this is exacerbation of some of her chronic illnesses as
opposed to an acute infectious or surgical etiology. Patient very concerned for appendicitis so will obtain CT scan for further evaluation. Given patient's reported diarrhea will also attempt for stool studies. Compazine ordered for symptomatic
relief. Reassessment following.
Chronic conditions affecting care: Other (CRPS/chronic pain)
*Radiology
Radiology exam reviewed: radiology read reviewed
*Pulse Oximetry
Patient hypoxic: no
*Critical Care Note
Total Time (30-74mins, 75-104mins- exclusive of procedures): Not Applicable
Data Reviewed
Review of Other/Old Records Reveals: Labs and Records
Source: patient and records
Patient Management
Escalation/DeEscalation of care consider admission/obs:
CT findings as below:
IMPRESSION:
Small hiatal hernia.
Mild splenomegaly with spleen slightly increased in size in comparison to prior study.
Borderline hepatomegaly.
Prior cholecystectomy.
Markedly limited evaluation of intestinal tract without oral contrast, without intestinal obstruction or free air. No right lower quadrant focal inflammatory changes.
Right ovarian follicle measuring approximately 3.4 cm.
I discussed these findings with the patient. She Noom about her hiatal hernia and had been on omeprazole 40 mg p.o. daily but states since there was no change in her symptoms they took patient off of this. Patient feeling better with Compazine.
She feels comfortable being discharged home. Advise she discontinue Zofran if taking the Compazine. She will follow-up with primary care and GI. Aware of return precautions to the ER.
ED Attending Note
-
Portions of this chart may have been created with voice recognition software.� Occasional wrong word or��sound alike� substitutions may have occurred due to the inherent limitations of voice recognition software.
Discharge Plan
Departure
Patient Disposition: Home (Routine Discharge)
Date of Disposition: 03/30/24
Time of Disposition: 19:48
Patient with high blood pressure during this ER visit?: No
Discharge Problem:
Abdominal pain, Nausea and vomiting
Instructions: Abdominal Pain
Prescriptions:
New
prochlorperazine maleate [Compazine] 10 mg tablet
10 mg PO BID PRN (Reason: nausea and vomiting) Qty: 10 0RF
No Action
doxepin 75 mg Capsule
150 mg PO HS
Patient Comments:
Patient takes medication as needed
ondansetron 4 mg tablet,disintegrating
4 mg PO Q6H PRN (Reason: nausea and vomiting) Qty: 14 0RF
hydromorphone [Dilaudid] 2 mg tablet
2 mg PO Q6H PRN (Reason: Pain) Qty: 10 0RF
albuterol sulfate [ProAir HFA] 90 mcg/actuation Hfa Aerosol Inhaler
1 puff INHALATION Q4HPRN PRN (Reason: shortness of breath) Qty: 8.5 0RF
doxepin 150 mg Capsule
150 mg PO DAILY
venlafaxine [Effexor XR] 75 mg Capsule,Extended Release 24hr
225 mg PO DAILY
oseltamivir 75 mg Capsule
75 mg PO BID Qty: 10 0RF
Rx Instructions:
last dose 10/11/23PM
gabapentin 400 mg Capsule
800 mg PO DAILY Qty: 60 0RF
gabapentin 400 mg Capsule
1,600 mg PO HS Qty: 120 0RF
Referrals:
Joselin Mullen PA-C [Family Provider] -
Interventions
Interventions:
*Risk Screen - Suicide Last Done: 03/30/24 16:24
*General Assessment Last Done: 03/30/24 17:05
*Neglect/Abuse Screening Last Done: 03/30/24 16:24
*ED COVID-19 Vaccine History Last Done: 03/30/24 16:24
TC-Kwhaxb-Zhraesuxnt Assessment Last Done: 03/30/24 17:05
Discharge Date and Time
Print Language: LATVIAN
[2024-03-30 18:00] VITALS: BP 126/70
[2024-03-30] MEDS: COMPAZINE 10 MG IV (18:14)
[2024-03-30] MEDS: NSS 1000 IV (18:15)
[2024-03-30] MEDS: DILAUDID 1 MG IV (18:22)
== END 2024-03-30 20:15 | disposition home or self-care (01) ==
LOC: EMR 16:22
PROVIDERS: EMERGENCY PHYSICIAN Student in an Organized Health Care Education/Training Program; FAMILY PHYSICIAN Physician Assistant Medical
DX: R10.9 Unspecified abdominal pain (principal); R11.2 Nausea with vomiting, unspecified; F41.9 Anxiety disorder, unspecified; F32.A Depression, unspecified; Z87.891 Personal history of nicotine dependence
CPT/HCPCS: 99285; 96374; 96375; 96361; 74177; 80053; 83690; 84703; 85025; Q9967

== ENCOUNTER → 2024-04-14 06:22 | Day surgery (SDC) | payer OTHER, SELFPAY | LOC: GI 06:22 | PROVIDERS: ATTENDING PHYSICIAN Internal Medicine | DX: R11.2 Nausea with vomiting, unspecified (principal); R63.4 Abnormal weight loss; K22.9 Disease of esophagus, unspecified; K29.80 Duodenitis without bleeding | CPT/HCPCS: 43239; 88305; 88342 ==

== ENCOUNTER 2024-04-19 02:54 | Inpatient (IN) | payer OTHER, SELFPAY ==
[2024-04-18 18:40] VITALS: BP 132/91
[2024-04-18 20:57] LABS: % Immature Granulocytes 0.1 % (0-0.5); % Monocytes 6.2 % (1.7-9.3); % Neutrophils 64.7 % (42.2-75.2); Absolute Lymphocytes 2.3 10^3/uL (1.2-3.4); Absolute Monocytes 0.5 10^3/uL (0.1-0.6); Hematocrit 36.7 % (37.0-47.0); Hemoglobin 12.3 g/dL (12.0-16.0); Mean Corp Hgb Conc. 33.5 g/dL (33.0-37.0); Mean Corpuscular Hgb 26.6 pg (27.0-31.0); Mean Corpuscular Volume 79.4 fL (81.0-99.0); Mean Platelet Volume 11.1 fL (7.4-10.4); Nucleated Red Blood Cells % 0 %; Platelet Count 275 10^3/uL (130-400); Red Blood Cell Count 4.62 10^6/uL (4.20-5.40); Red Cell Dist. Width 15.1 % (11.5-14.5); White Blood Cell Count 7.8 10^3/uL (4.8-10.8)
[2024-04-18 21:27] LABS: ALT (SGPT) 43 U/L (0-35); AST (SGOT) 27 U/L (14-36); Albumin 4.7 g/dl (3.5-5.0); Alkaline Phosphatase 99 U/L (38-126); Blood Urea Nitrogen 9 mg/dl (7-17); Calcium 10.2 mg/dl (8.4-10.2); Carbon Dioxide 23 mmol/L (22-30); Chloride 104 mmol/L (98-107); Glucose 97 mg/dl (70-99); Potassium 4.5 mmol/L (3.5-5.1); Sodium 141 mmol/L (135-145); Total Bilirubin 0.6 mg/dl (0.2-1.3); Total Protein 7.6 g/dl (6.3-8.2); eGFR > 60.00
--- NOTE | 2024-04-18 21:29 | ED.GENMED ---
History of Present Illness
General
Chief Complaint: Abdominal Symptoms
Source: patient
Exam Limitations: none
Time Seen by Provider: 04/18/24 20:40
History of Present Illness
History of Present Illness:
This is a 28 year old female that comes in from [facility] for nausea, vomiting and diarrhea. States that this has been going on for months and that she has seen the GI specialist and she had an endoscopy. States that today she was suicidal due to the
pain and not being able to eat. States that she had to stop her Dilaudid for the GI specialist for them to do further testing. States that she has had chills, headache, dizziness, and abd pain. States that she is to go to [place] but she feels that
she just can't as she is to sick. Denies any fever, chest pain, SOB, urinary burning.
Past History
Past History
ED Past Medical History: Asthma (Patient Denies), Psychiatric (Anxiety, Depression, ) and Other (, ovarian cysts, hyperemesis gravidarum, RSD, Migraines, Renal calculus, Anemia. Complex regional pain Syndrome, Gi issues)
ED Past Surgical History: Cholecystectomy, , Gynecological (Ovarian cyst, 2 miscarriage's, D&C), Tonsilectomy (And adenoids) and Other (LLL resection)
Social History
Tobacco: Former smoker
Alcohol: None
Drug: None
Personal: (Engaged)
Living: with family
Employment: Employed
Family History
Family History: Other (Father with a 'stiff heart'. Family history of diabetes depression and anxiety grandfather with a stent in valve replacement)
Review of Systems
Review of Systems
All Other Systems: ROS reviewed and negative except as documented in HPI and ROS
Constitutional: Reports chills; Denies fever
EENT: Reports no symptoms
Respiratory: Reports no symptoms; Denies cough or trouble breathing
Cardiac: Reports no symptoms; Denies chest pain
ABD/GI: Reports abdominal pain, nausea, vomiting and diarrhea
: Reports no symptoms; Denies dysuria, frequency or urgency
Musculoskeletal: Reports no symptoms
Skin: Reports no symptoms
Neurological: Reports dizzy and headache
Psychiatric: Reports suicidal
Phy Exam
General Physical Exam
General Presentation: no apparent distress
General age: appears stated age
General Skin: warm and dry
General Habitus: normal
General Mental: alert and anxious
General Hydration: dry mucous membranes
ENT Exam
ENT Exam: TM's normal, pharynx normal and neck supple
Eye Exam
Eye Exam: EOMI
Cardiovascular Exam
Cardiovascular Exam: regular rate/rhythm, no edema, no murmur and normal peripheral pulses
Pulmonary Exam
Pulmonary Exam: lungs clear, no respiratory distress, no rales, chest non tender, no crackles, no rhonchi, no wheezing and no cough
Gastrointestinal Exam
Gastrointestinal Exam: soft, no organomegaly, no pulsatile mass, non distended, tender (Generalized tenderness with palpation) and other (Hypoactive bowel sounds)
Musculoskeletal Exam
Musculoskeletal Exam: full ROM and no edema
Skin Exam
Skin Exam: normal color, warm/dry, no rash and no petechia
Psychiatric Exam
Psychiatric Exam: suicidal
Course
Orders/Labs/Results
Orders:
Orders
04/18/24 18:44
Electrocardiogram (*1) Urgent
Reason for Study: Tachycardia
04/18/24 18:45
EKG- Treatment ONCE
Test Result ONCE
04/18/24 20:43
Complete Blood Count/With Diff Urgent
Comprehensive Metabolic Panel Urgent
HCG, Serum Qualitative Screen Urgent
04/18/24 21:05
Urine Drug Abuse Screen Urgent
Date Specimen was Collected: 04/18/24
Time Specimen was Collected: 21:06
04/18/24 21:27
0.9% Sodium Chloride 1000 ml [Nss] 1,000 ml IV BOLUS
Ondansetron Injectable [Zofran] 4 mg IV NOW STA
04/18/24 21:33
Ketorolac [Toradol] 30 mg IV NOW STA
04/18/24 23:20
Ondansetron Injectable [Zofran] 4 mg .ROUTE .STK-MED ONE
04/18/24 23:22
Ondansetron Injectable [Zofran] 4 mg IV NOW STA
04/18/24 23:26
Metoclopramide [Reglan] 10 mg .ROUTE .STK-MED ONE
04/19/24 00:16
Metoclopramide [Reglan] 10 mg IV NOW STA
04/19/24 01:24
Fentanyl, Urine Urgent
04/19/24 01:56
Admit/Transfer Patient As Directed
Co-Sign Provider:
Level of Care: Inpatient admission
Assign to:: Telemetry
Physician / Group: Dung
Diagnosis: Intractable N/V, Opioid Withdrawal
Reason for Telemetry: Syncope
Date to Stop Telemetry: 04/21/24
Time to Stop Telemetry: 11:00
Reason for Hospitalization: Intractable N/V, Opioid Withdrawal
Expected length of stay greater than two midnights?: Yes
ELOS- Estimated Length of Stay in days: 3
I certify the patient meets the requirements for IP care: Yes
PRN Pain Medication Management As Directed
May give lesser potent ordered pain med per pt: Yes
preference::
Protocol:: Medication orders for pain may be administered in a
manner that supports deferring to patient preference
when the pt is:
- Requesting an ordered lesser potent pain medication.
Least to most potent pain medications are defined
as: acetaminophen < NSAID < tramadol < opioids
(morphine, oxycodone, hydromorphone).
- Requesting a lesser dose of the same medication IF
ORDERED.
- Requesting a less intrusive route of administration
if both routes are prescribed by the provider (PO <
IV).
04/19/24 01:57
Code Status As Directed
Resuscitation Status: Full Code
04/19/24 02:55
0.9% Sodium Chloride 1000 ml [Nss] 1,000 ml IV 125 mls/hr
Acetaminophen [Tylenol] 650 mg PO Q4HPRN PRN
Buprenorphine [Subutex] 8 mg SL PRN PRN
Ketorolac [Toradol] 10 mg IV Q6HPRN PRN
Prochlorperazine [Compazine] 5 mg IV Q6HPRN PRN
Tizanidine [Zanaflex] 2 mg PO Q6HPRN PRN
Trimethobenzamide [Tigan] 200 mg IM Q6HPRN PRN
04/19/24 02:55
Consult Notification Routine
Specialty to Notify: Gastroenterology
Consult Notification Routine
Specialty to Notify: Psychiatry
GASTROINTESTINAL CONSULT Routine
Consulting Provider: Olesya Morocho
Was physician already notified: No
Reason for consult: Intractable N/V
PSYCHIATRY CONSULT Routine
Consulting Provider: Ramakrishna Pritchett
Was physician already notified: No
Reason for consult: Depression, N/V, CRPS
Fentanyl, Urine Urgent
TSH Reflex To Free T4 Routine
Stool Culture Urgent
FRANCO Source: Feces/Stool
Specimen Description:
Activity As Directed
Activity Level: Ambulate
With Assistance
Clinical Opioid Withdrawal Scale (COWS) .PRN
EKG with chest pain [ECG as needed] As Directed
ECG as needed for:: Chest Pain
I/O [Intake/ Output] As Directed
Frequency: Per unit guidelines
Pneumatic Compression Sleeves As Directed
Type: Knee high
Vital Signs As Directed
Frequency: Per unit guidelines
Oxygen Therapy [O2 Therapy] [RESP] Routine
Titrate/Wean O2 to maintain O2 sat greater than (%): 94
DX Deep Vein Thrombosis Video Routine
04/19/24 06:00
EKG [Electrocardiogram (*1)] IN AM
Reason for Study: Chest Pain
Regular
At Your Request: Full Participation
Basic Metabolic Panel IN AM
Complete Blood Count/No Diff IN AM
Magnesium IN AM
04/19/24 08:00
Pantoprazole [Protonix IV] 40 mg IV DAILY
Venlafaxine Extended Release [Effexor Xr] 225 mg PO DAILY
gabapentin 1,600 mg PO BID
04/19/24 18:00
Enoxaparin Sodium [Lovenox] 40 mg SC QPM
04/19/24 22:00
Mirtazapine [Remeron] 30 mg PO HS
04/20/24 08:00
Buprenorphine [Subutex] 4 mg SL ONCE PRN PRN
Buprenorphine [Subutex] See Dose Instructions SL ONCE ONE
04/21/24 08:00
Buprenorphine [Subutex] See Dose Instructions SL DAILY
04/21/24 11:00
DC Protocol for Telemetry ONCE
Abnormal Lab Results
04/18/24 04/19/24
20:43 01:24
Hct 36.7 L %
(37.0-47.0)
MCV 79.4 L fL
(81.0-99.0)
MCH 26.6 L pg
(27.0-31.0)
RDW 15.1 H %
(11.5-14.5)
MPV 11.1 H fL
(7.4-10.4)
ALT 43 H U/L
(0-35)
Urine Opiates Screen Positive H
(Negative)
04/18/24 20:43
04/18/24 20:43
ALT slightly elevated. Anemia, ALT mildly elevated. HCG negative.
Vital Signs
Initial and Last Documented VS:
Initial Vital Signs
Temp Pulse Resp BP Pulse Ox
97.9 F 132 20 132/91 97
04/18/24 18:40 04/18/24 18:40 04/18/24 18:40 04/18/24 18:40 04/18/24 18:40
Last Documented Vital Signs
Temp Pulse Resp BP Pulse Ox
98.2 F 114 18 131/92 95
04/19/24 02:45 04/19/24 02:45 04/19/24 02:45 04/19/24 02:45 04/19/24 02:45
MDM/Problems Addressed
Differential Diagnosis Includes:
Complex regional pain syndrome, Suicidal
MDM/Problems Addressed:
This is a 28 year old female that is sent over from [facility]. States that she has had nausea, vomiting, diarrhea for a month. States that she has CRPS and that she has had to be off her Dilaudid so the GI specialist can complete there workup. States
that she had just had enough today. Dad states that she is just getting bounced around to doctors and know one is helping her and that is why she has gotten to this point to day of thinking about suicide. Dad states please help us.
will get labs, IV fluids, Zofran and give Toradol.
Back into see patient. Explained that her blood work shows some anemia and her ALT is very slightly elevated. Patient continues with nausea. State that she is unable to eat and dad is very angry as is she gets discharge she will end up going to
[place] and vomiting and they will sent her to another hospital. States that she can't keep any of her medications down. Explained to dad that this may also be a psycniatric problem that would be able to be resolved inpatient. Will admit patient
with nausea and vomiting and diarrhea.
Chronic conditions affecting care:
Complex regional pain syndrome
Chronic conditions affecting care: Psychiatric illness
Acute Exacerbation and/or Progression of Chronic Illness:
Complex regional pain syndrome
Acute Exacerbation and/or Progression of Chronic Illness: Psychiatric illness
*Pulse Oximetry
Patient hypoxic: no
*EKG
Interpreted by ED Provider?: NA
Rate: EKG- N/A
*Fusion Operator Interpretation
Rate: Fusion Operator- N/A
*Critical Care Note
Total Time (30-74mins, 75-104mins- exclusive of procedures): Not Applicable
ED Attending Note
-
Portions of this chart may have been created with voice recognition software.� Occasional wrong word or��sound alike� substitutions may have occurred due to the inherent limitations of voice recognition software.
Discharge Plan
Departure
Patient Disposition: Admit
Date of Disposition: 04/18/24
Time of Disposition: 23:33
Admit to: Med/Surg
Presentation/result/management discussed w/ accepting MD/DO: Hospitalist
Patient with high blood pressure during this ER visit?: No
Condition: Good
Covid-19: Not Applicable
Discharge Problem:
Suicidal ideations, Nausea vomiting and diarrhea
Interventions
Interventions:
*Risk Screen - Suicide Last Done: 04/18/24 21:12
*General Assessment Last Done: 04/18/24 21:12
*Neglect/Abuse Screening Last Done: 04/18/24 21:12
ED- Fall Risk Assessment Last Done: 04/18/24 21:12
*ED COVID-19 Vaccine History Last Done: 04/18/24 23:48
*Nursing Disposition Last Done: 04/19/24 02:32
UI-Kqsejs-Jggvlmyxvu Assessment Last Done: 04/18/24 21:12
Discharge Date and Time
Discharge Date/Time: 04/19/24 02:39
[2024-04-18 21:34] VITALS: BP 115/76
[2024-04-18 21:40] VITALS: BP 115/76
[2024-04-18] MEDS: ZOFRAN 4 MG IV (21:41)
[2024-04-18] MEDS: NSS 1000 IV (21:41)
[2024-04-18 21:54] LABS: HCG, Serum Qualitative Screen Negative
[2024-04-18 22:00] VITALS: BP 106/78
[2024-04-18 22:05] VITALS: BMI 45.8
[2024-04-18] MEDS: TORADOL 30 MG IV (22:20)
[2024-04-18 23:00] VITALS: BP 125/67
[2024-04-19] VITALS (8 sets, daily range): BP systolic 110–131; BP diastolic 72–92; BMI 44.0
[2024-04-19] MEDS: REGLAN 10 MG IV (00:17)
[2024-04-19 01:46] LABS: Amphetamines Negative (Negative); Barbiturates Negative (Negative); Benzodiazepines Negative (Negative); Buprenorphine Negative (Negative); Cocaine Negative (Negative); Marijuana Negative (Negative); Methadone Negative (Negative); Methamphetamines Negative (Negative); Opiates Positive (Negative); Phencyclidine Negative (Negative); Tricyclic Antidepressants Negative (Negative)
[2024-04-19 02:04] LABS: Fentanyl, Urine Negative (Negative)
--- NOTE | 2024-04-19 02:06 | HPS.HSE ---
Family Physician
-
Family Physician: Joselin Mullen
Chief Complaint
-
N/V
History of Present Illness
Patient is a 28y F with PMH significant for CRPS, anxiety / depression and morbid obesity who presents to ED complaining of N/V. Patient presented to the ED as a crisis evaluation with suicidal ideation. Patient states that she is at her wits
end due to intractable N/V that has been ongoing for about one month now. Patient reports N/V as well as diarrhea that occurs throughout the day. She states that she has been unable to tolerate any solid foods - and has not een able to take any of
her usual medications for the past 2-3 days due to her symptoms. She has diffuse abdominal pain. Her stools are loose and non-bloody. Here emesis is non-bilious and non-bloody.
Patient was evaluated by GI and underwent EGD 04/14 for evaluation. This showed white plaques suspicious for candidiasis. Biopsies were taken and are unfortunately still pending.
Patient denies any pain with swallowing, mouth burning, etc.
She has no fevers.
Today patient states that she was feeling chills, sweats and lightheadedness. Here in the ED she felt as if she might pass out after walking to the bathroom.
Medical History
Past Medical History
Past Medical History: Reports Other (anxiety/depression, trapped left lower lung s/p resection 2018, complex regional pain syndrome, morbid obesity)
Past Surgical History: Reports Other (Cholecystectomy, , Gynecological (Ovarian cyst, 2 miscarriage's, ), Tonsilectomy and Other (left lower lung resection))
Social History
Tobacco: Smoker (Current some-day smoker.)
Alcohol: Occasional
Family History
Family History: Not pertinent
Allergies / Home Medications
Allergies reflects when Allergies were last updated in [employer].
Home Medications with original date entered in [facility]
Allergy/Medication List:
Allergies
Allergy/AdvReac Type Severity Reaction Status Date / Time
oxycodone Allergy Nausea / Verified 04/18/24 18:41
Vomiting
Home Medications
venlafaxine 75 mg capsule,extended release 24 hr (Effexor XR) 225 mg PO DAILY Mental Health/Anxiety 10/08/23
gabapentin 800 mg tablet 1,600 mg PO BID 04/18/24
hydromorphone 4 mg tablet 4 mg PO TID 04/18/24
mirtazapine 30 mg tablet 30 mg PO HS 04/18/24
ondansetron 8 mg disintegrating tablet 8 mg PO TIDPRN PRN NAUSEA/VOMITING 04/18/24
Review of Systems
-
History Source: Patient
A 12 point ROS was completed and negative except as noted: Yes
Constitutional: Reports Fatigue and Chills; Denies Fever
EENT: Denies Sore Throat
Respiratory: Denies Cough or Trouble Breathing
Cardiac: Reports Diaphoresis and Syncope (Lightheaded / near syncope); Denies Chest Pain or Palpitations
Abdomen/GI: Reports Abdominal Pain, Nausea, Vomiting, Diarrhea and Anorexia; Denies Bloody Stools or Black Stools
: Denies Dysuria, Frequency or Flank Pain
Musculoskeletal: Denies Joint Pain or Edema
Neurological: Reports Dizzy and Headache
Psych: Reports Depression, Anxiety and Suicidal
Physical Exam
Vital Signs
Vital Signs
Temp Pulse Resp BP Pulse Ox
97.9 F 91 19 110/78 96
04/18/24 18:40 04/19/24 01:26 04/19/24 01:26 04/19/24 00:21 04/19/24 01:30
Physical Exam
General: Other (28y F in mild- moderate distres due to nausea / abdominal pain.)
HEENT: Moist mucous membranes and Other (Thick neck.)
Respiratory: Clear; No Wheezes, Rales or Rhonchi
Cardiac: S1/S2 and Regular Rhythm; No Murmur
GI: Non Distended, Normal Bowel Sounds and Other (Obese. Diffusely tender to extremely light pressure. Difficult exam.)
Musculoskeletal: No Clubbing, No Cyanosis and No Edema
Neuro: AO x 3
Psych: Anxious, Depressed and Suicidal (Patient denies any current suicidal ideations / thoughts.)
Laboratory Results
-
04/18/24 20:43
04/18/24 20:43
Laboratory Results
Total Bilirubin 0.6 mg/dl (0.2-1.3) 04/18/24 20:43
AST 27 U/L (14-36) 04/18/24 20:43
ALT 43 U/L (0-35) H 04/18/24 20:43
Alkaline Phosphatase 99 U/L (38-126) 04/18/24 20:43
Impression/Plan
-
A/P: Patient is a 28y F with PMH significant for trapped lung, CRPS and morbid obesity who presents to ED complaining of intractable N/V.
Intractable N/V/D
- Admit for further evaluation and treatment.
- Supportive care, IVFs, antiemetics, etc.
- GI evaluation for additional recommendations.
- Follow-up path results from recent EGD re: +/- fluconazole therapy.
- Check stool studies if possible.
- ? if symptoms are psychologic in origin.
CRPS
Opioid Withdrawal
- Patient reports inability to tolerate any of her medications over the past 2-3 days.
- She complains today of chills, diaphoresis and lightheadedness.
- Wonders if she might be withdrawing from Dilaudid which seems possible.
- Certainly this may also be contributing to N/V at this point.
- Patient states that she does not wish to resume Dilaudid.
- COWS protocol and treat withdrawal symptoms as needed.
- Follow for clinical improvement.
- Patient to follow-up with outpatient Pain Management (Dr. Sena).
Anxiety / Depression
Suicidal Ideation
- Patient initially presented to crisis with reports of suicidal ideation.
- On further discussion, patient states that she was simply frustrated with her ongoing GI issues.
- She denies current suicidal thoughts.
- Psych evaluation for additional recommendations.
- Continue current psychotropic med regimen for now.
- ED staff notes that back-up 302 has been completed for enforcement if patient later wishes to leave.
Morbid Obesity
- Affects all aspects of care.
- Encourage healthy diet and increased exercise with goal of weight loss.
- Patient reports weight loss due to her GI issues; however, by our scale her weight has increased from previous.
DVT Prophylaxis: Lovenox
Code Status: Full
[2024-04-19] MEDS: NSS 1000 IV ×3 (03:55→20:39)
[2024-04-19] MEDS: COMPAZINE 5 MG IV ×2 (03:55→11:13)
--- NOTE | 2024-04-19 04:42 | PTCARENOTE ---
Pt. arrived to unit from ED via stretcher. Pt. able to safely ambulate from stretcher to bed in room 324. 1:1 at bedside with patient for SI. Pt. able to answer questions appropriately. Oriented to unit. Plan of care ongoing.
[2024-04-19 07:13] LABS: Blood Urea Nitrogen 11 mg/dl (7-17); Calcium 9.3 mg/dl (8.4-10.2); Carbon Dioxide 23 mmol/L (22-30); Chloride 109 mmol/L (98-107); Estimated Creatinine Clearance > 125 ml/min; Glucose 97 mg/dl (70-99); Potassium 4.4 mmol/L (3.5-5.1); Sodium 143 mmol/L (135-145); eGFR > 60.00
--- NOTE | 2024-04-19 07:34 | W.PN.HOSP.TC ---
Today's Communication/Plan
-
Please see below
Assessment / Plan
Assessment / Plan
Physical Exam
General: Other (28y F in mild- moderate distres due to nausea / abdominal pain.)
HEENT: Moist mucous membranes and Other (Thick neck.)
Respiratory: Clear; No Wheezes, Rales or Rhonchi
Cardiac: S1/S2 and Regular Rhythm; No Murmur
GI: Non Distended, Normal Bowel Sounds and Other (Obese. Diffusely tender to extremely light pressure. Difficult exam.)
Musculoskeletal: No Cyanosis and No Edema
Neuro: AAO x 3
Psych: Anxious, Depressed and Suicidal (Patient denies any current suicidal ideations / thoughts.)
Assessment/Plan
Patient is a 28y F with PMH significant for trapped lung, CRPS and morbid obesity who presents to ED complaining of intractable N/V.
28y F with CRPS and morbid obesity presented with intractable N/V/D. Initially presented to crisis as suicidal ideation - but no plan / no attempt and denies suicidal thoughts at present. Stated that she was just frustrated with her GI issues.
Had EGD 04/14 - path results pending. GI consulted. Supportive care. ? degree of opioid withdrawal as she states she has not been able to keep any meds down in 3 days. She does not want to restart Dilaudid though - so started COWS protocol
instead. Psych consulted.
Intractable N/V/D suspected from narcotic use, gastroparesis, anxiety related vs other
- Supportive care, IVFs, antiemetics, etc.
- GI evaluation for additional recommendations.
- Follow-up path results from recent EGD re: +/- fluconazole therapy.
- Check stool studies if possible.
- ? if symptoms are psychologic in origin.
- Appreciate GI: check abdominal X ray to confirm no constipation
- Reglan consideration as per GI, but there are contraindications to Reglan as per psychiatry
CRPS
Opioid Withdrawal
- Patient reports inability to tolerate any of her medications over the past 2-3 days.
- She complains today of chills, diaphoresis and lightheadedness.
- Wonders if she might be withdrawing from Dilaudid which seems possible.
- Certainly this may also be contributing to N/V at this point.
- Patient states that she does not wish to resume Dilaudid.
- COWS protocol and treat withdrawal symptoms as needed.
- Follow for clinical improvement.
- Patient to follow-up with outpatient Pain Management (Dr. Sena).
Anxiety / Depression
Suicidal Ideation
- Patient initially presented to crisis with reports of suicidal ideation.
- On further discussion, patient states that she was simply frustrated with her ongoing GI issues.
- She denies current suicidal thoughts.
- Psych evaluation for additional recommendations: appreciate psychiatry reducing gabapentin, Effexor, and Remeron
- Continue current psychotropic med regimen for now.
- ED staff noted that back-up 302 has been completed for enforcement if patient later wishes to leave.
Morbid Obesity
- Affects all aspects of care.
- Encourage healthy diet and increased exercise with goal of weight loss.
- Patient reports weight loss due to her GI issues; however, by our scale her weight has increased from previous.
DVT Prophylaxis: Lovenox
Code Status: Full
This is a non-billable note.
Anticipated Discharge: > 48 hours
Subjective/Interval History
-
Date of Service: April 19, 2024
Patient was seen and examined. She reported chronic abdominal pain and pain associated with her chronic pain.
Objective Data
-
Labs:
Laboratory Results
04/18/24 04/19/24
20:43 06:23
WBC 7.8 Pending
Hgb 12.3 Pending
Hct 36.7 L Pending
Plt Count 275 Pending
Sodium 141 143
Potassium 4.5 4.4
Chloride 104 109 H
Carbon Dioxide 23 23
BUN 9 11
Creatinine 0.7 0.8
Glucose 97 97
Calcium 10.2 9.3
Total Bilirubin 0.6
AST 27
ALT 43 H
Alkaline Phosphatase 99
Vital Signs:
Vital Signs
Temp Pulse Resp BP Pulse Ox
98.2 F 114 18 131/92 95
04/19/24 02:45 04/19/24 02:45 04/19/24 02:45 04/19/24 02:45 04/19/24 02:45
I&O
04/18/24 04/19/24 04/20/24
06:59 06:59 06:59
Intake Total 735 / 735
Balance 735 / 735
[2024-04-19 07:37] LABS: Hematocrit 32.1 % (37.0-47.0); Hemoglobin 10.8 g/dL (12.0-16.0); Mean Corp Hgb Conc. 33.6 g/dL (33.0-37.0); Mean Corpuscular Hgb 27.3 pg (27.0-31.0); Mean Corpuscular Volume 81.3 fL (81.0-99.0); Mean Platelet Volume 11.2 fL (7.4-10.4); Platelet Count 212 10^3/uL (130-400); Red Blood Cell Count 3.95 10^6/uL (4.20-5.40); White Blood Cell Count 6.8 10^3/uL (4.8-10.8)
[2024-04-19 07:42] LABS: TSH Reflex To Free T4 0.69 uIU/ml (0.47-4.68)
[2024-04-19] MEDS: TORADOL 10 MG IV (08:33)
[2024-04-19] MEDS: ZOFRAN 4 MG IV ×2 (09:51→15:48)
[2024-04-19] MEDS: NSS (PRESERVATIVE FREE) 10 ML IV (09:55)
[2024-04-19] MEDS: PROTONIX IV 40 MG IV (09:55)
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
[2024-04-19 12:24] LABS: Iron 84 ug/dl (37-170)
[2024-04-19 12:33] LABS: Percent Saturation 28 % (20-50); Total Iron Binding Capacity 298 ug/dl (265-497)
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
[2024-04-19 14:10] LABS: Ferritin 27.1 ng/ml (6.24-137)
[2024-04-19 14:41] LABS: Folate 10.6 ng/ml (2.76-20); Vitamin B12 263 pg/ml (239-931)
[2024-04-19] MEDS: MYLICON 80 MG PO (14:46)
--- NOTE | 2024-04-19 16:22 | CM ---
Reviewed chart, spoke with Psychiatrist who stated that she is removing 302. Met with patient to obtain information for assessment. Patient stated that she lives with her 3 children and spouse. Patient reported that she is independent with her ADLs,
personal care, dressing and bathing. 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 She drives and can get to her appointments and do all of her own shopping.
She denied suicidality.
She denied any DME.
She has never had VN services.
Patient has a prescription plan and uses, [facility] in [place] for all of her medications.
Her PCP is, Joselin Lawrence.
Patient stated that she will be able to return home when medically cleared for discharge.
Plan: Case management will continue to follow and assist with discharge planning. Home when stable.
[2024-04-19] MEDS: LOVENOX 40 MG SC (17:44)
[2024-04-19] MEDS: TIGAN 200 MG IM (18:29)
[2024-04-19] MEDS: NEURONTIN 1200 MG PO (20:42)
[2024-04-19] MEDS: REMERON 15 MG PO (22:55)
[2024-04-20 03:05] VITALS: BP 118/80
[2024-04-20] MEDS: LOVENOX 40 MG SC ×2 (05:59→18:34)
[2024-04-20] MEDS: NSS 1000 IV (06:00)
[2024-04-20] MEDS: TIGAN 200 MG IM ×3 (06:27→22:12)
[2024-04-20 07:25] VITALS: BP 127/77
[2024-04-20 09:11] LABS: Hematocrit 30.9 % (37.0-47.0); Hemoglobin 10.2 g/dL (12.0-16.0); Mean Corpuscular Hgb 26.4 pg (27.0-31.0); Mean Corpuscular Volume 80.1 fL (81.0-99.0); Mean Platelet Volume 10.9 fL (7.4-10.4); Platelet Count 202 10^3/uL (130-400); Red Blood Cell Count 3.86 10^6/uL (4.20-5.40); Red Cell Dist. Width 15.2 % (11.5-14.5); White Blood Cell Count 5.1 10^3/uL (4.8-10.8)
[2024-04-20] MEDS: EFFEXOR XR 75 MG PO (09:11)
[2024-04-20] MEDS: EFFEXOR XR 37.5 MG PO (09:11)
[2024-04-20] MEDS: NSS (PRESERVATIVE FREE) 10 ML IV (09:11)
[2024-04-20] MEDS: PROTONIX IV 40 MG IV (09:12)
[2024-04-20 09:31] LABS: ALT (SGPT) 26 U/L (0-35); AST (SGOT) 20 U/L (14-36); Albumin 3.7 g/dl (3.5-5.0); Alkaline Phosphatase 75 U/L (38-126); Blood Urea Nitrogen 7 mg/dl (7-17); Calcium 8.9 mg/dl (8.4-10.2); Carbon Dioxide 23 mmol/L (22-30); Chloride 111 mmol/L (98-107); Estimated Creatinine Clearance > 125 ml/min; Glucose 91 mg/dl (70-99); Potassium 4.1 mmol/L (3.5-5.1); Sodium 143 mmol/L (135-145); Total Bilirubin 0.5 mg/dl (0.2-1.3); Total Protein 6.2 g/dl (6.3-8.2); eGFR > 60.00
[2024-04-20] MEDS: NEURONTIN 1200 MG PO ×2 (11:15→20:00)
[2024-04-20 11:33] VITALS: BP 139/80
--- NOTE | 2024-04-20 14:45 | W.PN.UPDATE ---
Update Note
Progress Note Update
patient seen chart reviewed. spoke with nsg dr lexie rowe and with ms trimble. the patient reports she is feeling better. she was able to eat everything on her tray at lunch. she says she still has some periods of nausea when she gets up and moves around
but overall she feels better since the changes made in her meds. will continue w psych meds as they are for now . will see her tomorrow
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
[2024-04-20 15:22] VITALS: BP 109/60
[2024-04-20] MEDS: ZOFRAN 4 MG IV (18:45)
[2024-04-20 19:10] VITALS: BP 129/65
--- NOTE | 2024-04-20 19:11 | W.PN.HOSP.TC ---
Today's Communication/Plan
-
Doing better
Appreciate GI and psychiatry
Assessment / Plan
Assessment / Plan
Physical Exam
General: Not in acute distress
HEENT: Moist mucous membranes and Other (Thick neck.)
Respiratory: Clear to Auscultation Bilaterally
Cardiac: S1/S2 and Regular Rhythm
GI: Non Distended, Normal Bowel Sounds and Other (Obese. Diffusely tender to extremely light pressure. Difficult exam.)
Musculoskeletal: No Cyanosis and No Edema
Neuro: AAO x 3
Psych: Anxious, Depressed and Suicidal (Patient denies any current suicidal ideations / thoughts.)
Assessment/Plan
Patient is a 28y F with PMH significant for trapped lung, CRPS and morbid obesity who presents to ED complaining of intractable N/V.
28y F with CRPS and morbid obesity presented with intractable N/V/D. Initially presented to crisis as suicidal ideation - but no plan / no attempt and denies suicidal thoughts at present. Stated that she was just frustrated with her GI issues.
Had EGD 04/14 - path results pending. GI consulted. Supportive care. ? degree of opioid withdrawal as she states she has not been able to keep any meds down in 3 days. She does not want to restart Dilaudid though - so started COWS protocol
instead. Psych consulted.
Intractable N/V/D suspected from narcotic use, gastroparesis, anxiety related vs other
- Appetite better today, stool are formed, hold on Reglan
- Supportive care, IVFs, antiemetics, etc.
- GI evaluation for additional recommendations.
- Follow-up path results from recent EGD re: +/- fluconazole therapy.
- Check stool studies if possible.
- ? if symptoms are psychologic in origin.
- Appreciate GI evaluation and recommendations
CRPS
Opioid Withdrawal
- Patient reports inability to tolerate any of her medications over the past 2-3 days.
- She complains today of chills, diaphoresis and lightheadedness.
- Wonders if she might be withdrawing from Dilaudid which seems possible.
- Certainly this may also be contributing to N/V at this point.
- Patient states that she does not wish to resume Dilaudid.
- COWS protocol and treat withdrawal symptoms as needed.
- Follow for clinical improvement.
- Patient to follow-up with outpatient Pain Management (Dr. Sena).
Anxiety / Depression
Suicidal Ideation
- Patient initially presented to crisis with reports of suicidal ideation.
- On further discussion, patient states that she was simply frustrated with her ongoing GI issues.
- She denies current suicidal thoughts.
- Psych evaluation for additional recommendations: appreciate psychiatry -- continuing meds as they are for now
- Continue current psychotropic med regimen for now.
- ED staff noted that back-up 302 has been completed for enforcement if patient later wishes to leave.
Morbid Obesity
- Affects all aspects of care.
- Encourage healthy diet and increased exercise with goal of weight loss.
- Patient reports weight loss due to her GI issues; however, by our scale her weight has increased from previous.
DVT Prophylaxis: Lovenox
Code Status: Full
Anticipated Discharge: 24 - 48 hours
Subjective/Interval History
-
Date of Service: April 20, 2024
Patient was seen and examined. She reported feeling better, still having diarrhea.
Objective Data
-
Labs:
Laboratory Results
04/20/24
08:34
WBC 5.1
Hgb 10.2 L
Hct 30.9 L
Plt Count 202
Sodium 143
Potassium 4.1
Chloride 111 H
Carbon Dioxide 23
BUN 7
Creatinine 0.8
Glucose 91
Calcium 8.9
Total Bilirubin 0.5
AST 20
ALT 26
Alkaline Phosphatase 75
Vital Signs:
Vital Signs
Temp Pulse Resp BP Pulse Ox
98.1 F 86 17 109/60 100
04/20/24 15:22 04/20/24 15:22 04/20/24 15:22 04/20/24 15:22 04/20/24 15:22
I&O
04/19/24 04/20/24 04/21/24
06:59 06:59 06:59
Intake Total 735 / 735 2220 / 2220 900 / 900
Balance 735 / 735 2220 / 2220 900 / 900
[2024-04-20] MEDS: REMERON 15 MG PO (21:26)
[2024-04-20 23:04] VITALS: BP 102/64
[2024-04-21 03:05] VITALS: BP 119/65
[2024-04-21] MEDS: ZOFRAN 4 MG IV ×3 (03:26→16:54)
[2024-04-21] MEDS: TYLENOL 650 MG PO (03:36)
[2024-04-21] MEDS: LOVENOX 40 MG SC ×2 (05:14→16:53)
[2024-04-21] MEDS: TIGAN 200 MG IM ×2 (05:32→13:09)
[2024-04-21 07:15] VITALS: BP 111/68
[2024-04-21] MEDS: NSS (PRESERVATIVE FREE) 10 ML IV (08:07)
[2024-04-21] MEDS: PROTONIX IV 40 MG IV (08:07)
[2024-04-21] MEDS: EFFEXOR XR 75 MG PO (08:07)
[2024-04-21] MEDS: NEURONTIN 1200 MG PO ×2 (08:07→20:54)
[2024-04-21] MEDS: EFFEXOR XR 37.5 MG PO (08:07)
[2024-04-21 08:14] LABS: Mean Corp Hgb Conc. 33.3 g/dL (33.0-37.0); Mean Corpuscular Hgb 27.3 pg (27.0-31.0); Mean Corpuscular Volume 81.9 fL (81.0-99.0); Mean Platelet Volume 10.4 fL (7.4-10.4); Platelet Count 214 10^3/uL (130-400); Red Blood Cell Count 4.03 10^6/uL (4.20-5.40); Red Cell Dist. Width 14.7 % (11.5-14.5); White Blood Cell Count 6.5 10^3/uL (4.8-10.8)
[2024-04-21] MEDS: TORADOL 10 MG IV ×2 (08:17→16:53)
[2024-04-21 08:52] LABS: Blood Urea Nitrogen 8 mg/dl (7-17); Calcium 9.2 mg/dl (8.4-10.2); Carbon Dioxide 25 mmol/L (22-30); Chloride 105 mmol/L (98-107); Estimated Creatinine Clearance > 125 ml/min; Glucose 94 mg/dl (70-99); Magnesium 1.9 mg/dl (1.6-2.3); Phosphorus 3.8 mg/dl (2.5-4.5); Potassium 4.1 mmol/L (3.5-5.1); Sodium 142 mmol/L (135-145); eGFR > 60.00
--- NOTE | 2024-04-21 09:28 | PTCARENOTE ---
pt states 8/10 pain in right arm and leg. pain med given as ordered. pt states having some nausea but is tolerable.
[2024-04-21 11:26] VITALS: BP 114/73
--- NOTE | 2024-04-21 12:36 | W.PN.HOSP.TC ---
Today's Communication/Plan
-
Doing better, anticipate discharge tomorrow
Assessment / Plan
Assessment / Plan
Physical Exam
General: Not in acute distress
HEENT: Moist mucous membranes and Other (Thick neck.)
Respiratory: Clear to Auscultation Bilaterally
Cardiac: S1/S2 and Regular Rhythm
GI: Non Distended, Normal Bowel Sounds and Other (Obese. Diffusely tender to light pressure. Difficult exam.)
Musculoskeletal: No Cyanosis and No Edema
Neuro: AAO x 3
Psych: Anxious, Depressed and Suicidal (Patient denies any current suicidal ideations / thoughts.)
Assessment/Plan
Patient is a 28y F with PMH significant for trapped lung, CRPS and morbid obesity who presents to ED complaining of intractable N/V.
28y F with CRPS and morbid obesity presented with intractable N/V/D. Initially presented to crisis as suicidal ideation - but no plan / no attempt and denies suicidal thoughts at present. Stated that she was just frustrated with her GI issues.
Had EGD 04/14 - path results pending. GI consulted. Supportive care. ? degree of opioid withdrawal as she states she has not been able to keep any meds down in 3 days. She does not want to restart Dilaudid though - so started COWS protocol
instead. Psych consulted.
Intractable N/V/D suspected from narcotic use, gastroparesis, anxiety related vs other
- Appetite remains better today, stools are more formed, hold on Reglan
- Supportive care, IVFs, antiemetics, etc.
- GI evaluation for additional recommendations.
- ? if symptoms are psychologic in origin.
- Appreciate GI evaluation and recommendations
CRPS
Opioid Withdrawal
- Patient reports inability to tolerate any of her medications over the past 2-3 days.
- She complains today of chills, diaphoresis and lightheadedness.
- Wonders if she might be withdrawing from Dilaudid which seems possible.
- Certainly this may also be contributing to N/V at this point.
- Patient states that she does not wish to resume Dilaudid.
- COWS protocol and treat withdrawal symptoms as needed.
- Follow for clinical improvement.
- Patient to follow-up with outpatient Pain Management (Dr. Sena).
Anxiety / Depression
Suicidal Ideation
- Patient initially presented to crisis with reports of suicidal ideation.
- On further discussion, patient states that she was simply frustrated with her ongoing GI issues.
- She denies current suicidal thoughts.
- Psych evaluation for additional recommendations: appreciate psychiatry
- Continue current psychotropic med regimen for now.
- ED staff noted that back-up 302 has been completed for enforcement if patient later wishes to leave.
Morbid Obesity
- Affects all aspects of care.
- Encourage healthy diet and increased exercise with goal of weight loss.
- Patient reports weight loss due to her GI issues; however, by our scale her weight has increased from previous.
DVT Prophylaxis: Lovenox
Code Status: Full
Anticipated Discharge: Within 24 hours
Subjective/Interval History
-
Date of Service: April 21, 2024
Patient was seen and examined. She denied any new symptoms or complaints, she had some food, she requested to be discharged tomorrow.
Objective Data
-
Labs:
Laboratory Results
04/21/24
08:02
WBC 6.5
Hgb 11.0 L
Hct 33.0 L
Plt Count 214
Sodium 142
Potassium 4.1
Chloride 105
Carbon Dioxide 25
BUN 8
Creatinine 0.8
Glucose 94
Calcium 9.2
Vital Signs:
Vital Signs
Temp Pulse Resp BP Pulse Ox
98.3 F 96 17 114/73 97
04/21/24 11:26 04/21/24 11:26 04/21/24 11:26 04/21/24 11:26 04/21/24 11:26
I&O
04/20/24 04/21/24 04/22/24
06:59 06:59 06:59
Intake Total 2220 / 2220 1380 / 1380
Balance 2220 / 2220 1380 / 1380
--- NOTE | 2024-04-21 12:39 | W.PN.UPDATE ---
Update Note
Progress Note Update
patient seen chart reviewed. discussed w nursing. mother at bedside. demetrio is continuing to feel somewhat better. hopefully will be dc tomorrow. discussed further taper of effexor and remeron. she does not feel she is withdrawing at this point.
will decrease effexor to 37.5 and remeron to 7.5 mother expressed unhappiness w remeron given weight gain. we talked about patient's children. mom worried the five year old is experiencing anxiety but it sounds to me as though mom is handling this
appropriately and demetrio will see her kids tomorrow. gave her a suggestion for out pt followup [facility]. suggested therapy as well as med mgt. she can continue w the low doses of effexor and remeron til she sees new prescriber or
stop them if she is comfortable until she talks to them. will touch base w her in the am. she also asked me about a backup 302 done in the er at admit. i do not feel she needs to be 302'd at this point for any reason. she is safe to be dc to home
and out pt followup
[2024-04-21 15:13] VITALS: BP 112/67
[2024-04-21 19:35] VITALS: BP 123/79
[2024-04-21] MEDS: REMERON 7.5 MG PO (20:56)
[2024-04-21 23:14] VITALS: BP 121/64
[2024-04-22 03:00] VITALS: BP 124/79
[2024-04-22] MEDS: ZOFRAN 4 MG IV ×2 (03:30→14:29)
[2024-04-22 03:35] VITALS: BP 115/70
[2024-04-22] MEDS: TORADOL 10 MG IV (05:16)
[2024-04-22] MEDS: LOVENOX 40 MG SC (06:25)
[2024-04-22] MEDS: NEURONTIN 1200 MG PO (07:55)
[2024-04-22] MEDS: PROTONIX 40 MG PO (07:56)
[2024-04-22] MEDS: EFFEXOR XR 37.5 MG PO (07:56)
[2024-04-22 08:00] VITALS: BP 104/62
[2024-04-22 09:29] LABS: Hemoglobin 11.1 g/dL (12.0-16.0); Mean Corp Hgb Conc. 32.6 g/dL (33.0-37.0); Mean Corpuscular Hgb 26.3 pg (27.0-31.0); Mean Corpuscular Volume 80.6 fL (81.0-99.0); Mean Platelet Volume 10.5 fL (7.4-10.4); Platelet Count 241 10^3/uL (130-400); Red Blood Cell Count 4.22 10^6/uL (4.20-5.40); Red Cell Dist. Width 14.5 % (11.5-14.5); White Blood Cell Count 6.6 10^3/uL (4.8-10.8)
[2024-04-22 09:46] LABS: ALT (SGPT) 22 U/L (0-35); AST (SGOT) 23 U/L (14-36); Albumin 3.9 g/dl (3.5-5.0); Alkaline Phosphatase 75 U/L (38-126); Blood Urea Nitrogen 8 mg/dl (7-17); Calcium 9.2 mg/dl (8.4-10.2); Carbon Dioxide 31 mmol/L (22-30); Chloride 104 mmol/L (98-107); Estimated Creatinine Clearance 115 ml/min; Glucose 91 mg/dl (70-99); Potassium 4.1 mmol/L (3.5-5.1); Sodium 143 mmol/L (135-145); Total Bilirubin 0.5 mg/dl (0.2-1.3); Total Protein 6.4 g/dl (6.3-8.2); eGFR > 60.00
[2024-04-22 11:00] VITALS: BP 127/87
--- NOTE | 2024-04-22 12:46 | W.PN.UPDATE ---
Update Note
Progress Note Update
patient seen chart reviewed. demetrio continues to improve. she is more able to eat without experiencing n/v. we reviewed. psych meds. effexor xr 37.5 which she can continue for a week or less then dc ditto with remeron 7.5 mg. she called for a
psych appointment but the recommendation i gave her does not accept her ins. she is going to return to dr pizarro at [facility] [address]. she is improved. should seek a therapist she can see more regularly if possible in addition to
psychiatrist. since she has been here we have also decreased gabapentin which she should continue. she seems to be tolerating current dose. patient leaving today reportedly and she is eager to get home.
--- NOTE | 2024-04-22 14:01 | W.PN.HOSP.TC ---
Today's Communication/Plan
-
Discharge today
Assessment / Plan
Assessment / Plan
Physical Exam
General: Not in acute distress
HEENT: Moist mucous membranes and Other (Thick neck.)
Respiratory: Clear to Auscultation Bilaterally
Cardiac: S1/S2 and Regular Rhythm
GI: Non Distended, Normal Bowel Sounds and Other (Obese. Diffusely mildly tender to light pressure. Difficult exam.)
Musculoskeletal: No Cyanosis and No Edema
Neuro: AAO x 3
Psych: Anxious, Depressed and Suicidal (Patient denies any current suicidal ideations / thoughts.)
Assessment/Plan
Patient is a 28y F with PMH significant for trapped lung, CRPS and morbid obesity who presents to ED complaining of intractable N/V.
28y F with CRPS and morbid obesity presented with intractable N/V/D. Initially presented to crisis as suicidal ideation - but no plan / no attempt and denies suicidal thoughts at present. Stated that she was just frustrated with her GI issues.
Had EGD 04/14 - path results pending. GI consulted. Supportive care. ? degree of opioid withdrawal as she states she has not been able to keep any meds down in 3 days. She does not want to restart Dilaudid though - so started COWS protocol
instead. Psych consulted.
Intractable N/V/D suspected from narcotic use, gastroparesis, anxiety related vs other
- Appetite remains much better today
- Supportive care, IVFs, antiemetics, etc.
- GI evaluation for additional recommendations.
- ? if symptoms are psychologic in origin.
- Appreciate GI evaluation and recommendations
CRPS
Opioid Withdrawal
- Patient reports inability to tolerate any of her medications over the past 2-3 days.
- She complains today of chills, diaphoresis and lightheadedness.
- Wonders if she might be withdrawing from Dilaudid which seems possible.
- Certainly this may also be contributing to N/V at this point.
- Patient states that she does not wish to resume Dilaudid.
- COWS protocol and treat withdrawal symptoms as needed.
- Follow for clinical improvement.
- Patient to follow-up with outpatient Pain Management (Dr. Sena).
Anxiety / Depression
Suicidal Ideation
- Patient initially presented to crisis with reports of suicidal ideation.
- On further discussion, patient states that she was simply frustrated with her ongoing GI issues.
- She denies current suicidal thoughts.
- Psych evaluation for additional recommendations: appreciate psychiatry: Effexor XR 37.5 which she can continue for a week or less then dc.
- Mirtazapine reduced to 7.5 mg PO HS.
- Continue reduced-dose Gabapentin.
- Return to Dr. Cullen at [facility]
Morbid Obesity
- Affects all aspects of care.
- Encourage healthy diet and increased exercise with goal of weight loss.
- Patient reports weight loss due to her GI issues; however, by our scale her weight has increased from previous.
DVT Prophylaxis: Lovenox
Code Status: Full
More than 30 minutes spent in discharge including
Final examination of the patient
Summarizing hospital stay
Instructions for continuing care to all relevant caregivers
Preparation of discharge records, prescriptions, and referral forms
Total time spent (in minutes): 35
Anticipated Discharge: Today
Subjective/Interval History
-
Date of Service: April 22, 2024
Patient was seen and examined. She reported she is feeling a lot better today, and is ready to go home.
Objective Data
-
Labs:
Laboratory Results
04/22/24
08:49
WBC 6.6
Hgb 11.1 L
Hct 34.0 L
Plt Count 241
Sodium 143
Potassium 4.1
Chloride 104
Carbon Dioxide 31 H
BUN 8
Creatinine 0.9
Glucose 91
Calcium 9.2
Total Bilirubin 0.5
AST 23
ALT 22
Alkaline Phosphatase 75
Vital Signs:
Vital Signs
Temp Pulse Resp BP Pulse Ox
98.2 F 74 19 127/87 97
04/22/24 11:00 04/22/24 11:00 04/22/24 11:00 04/22/24 11:00 04/22/24 11:00
I&O
04/21/24 04/22/24 04/23/24
06:59 06:59 06:59
Intake Total 1380 / 1380 1080 / 1080
Balance 1380 / 1380 1080 / 1080
--- NOTE | 2024-04-22 14:32 | W.DCSUMMARY ---
Discharge Summary
Discharge Data
Date of Admission: 04/19/24
Date of Discharge: 04/22/24
Total time spent discharging patient (in min): 35
-
Pending Results: No
Hospital Course
28 y/o female with past medical history significant for CRPS, anxiety/depression and morbid obesity who presented to the [facility] emergency department complaining of nausea and vomiting. Patient presented to the emergency department as a
crisis evaluation with suicidal ideation. She also reported diarrhea and diffuse abdominal pain. Patient was given intravenous fluids, and psychiatry and gastroenterology were consulted. Patient's gabapentin, effexor and remeron were reduced to help
with her symptoms. Patient's symptoms improved significantly, and she was able to tolerate oral intake. Her diarrhea improved as well.
Discharge Plan
-
Patient Disposition: Home (Routine Discharge)
Discharge Diagnosis/Procedures: Intractable nausea/vomiting/diarrhea suspected from narcotic use, gastroparesis, anxiety related versus other
CRPS
Opioid Withdrawal
Anxiety/Depression
Suicidal Ideation
Morbid Obesity
Condition: Good
Diet: As tolerated
Activity: As tolerated
Referrals:
Joselin Mullen PA-C [Family Provider] - in less than 1 week
Lesa Subramanian DO [Active] - (4-6 wks for nausea/vomiting)
Additional Discharge Medication Instructions: Gabapentin, Mirtazapine and Effexor doses all have been reduced.
Pantoprazole is a new medication.
Prescriptions:
New
venlafaxine [Effexor XR] 37.5 mg Capsule,Extended Release 24hr
37.5 mg PO DAILY Qty: 7 0RF
gabapentin 400 mg Capsule
1,200 mg PO BID Qty: 90 0RF
mirtazapine 7.5 mg Tablet
7.5 mg PO HS Qty: 30 0RF
pantoprazole 40 mg Tablet,Delayed Release (Dr/Ec)
40 mg PO DAILY Qty: 30 0RF
Discontinued
venlafaxine [Effexor XR] 75 mg Capsule,Extended Release 24hr
225 mg PO DAILY
ondansetron 8 mg tablet,disintegrating
8 mg PO TIDPRN PRN (Reason: nausea/vomiting )
gabapentin 800 mg tablet
1,600 mg PO BID
mirtazapine 30 mg tablet
30 mg PO HS
hydromorphone 4 mg tablet
4 mg PO TID
Patient Comments:
04/18/2024: LAST FILLED 03/19/24, 90 TABS FOR 30 DAYS FROM [facility]
Discharge Orders:
Discharge Patient (As Directed); Ordered 04/22/24
Ordered By: Cody Hernandez
Discharge Date and Time
Discharge Date/Time: 04/22/24 17:25
Print Language: AMHARIC
--- NOTE | 2024-04-22 14:56 | CM ---
Alert awake oriented patient who lives with her Dion plus 3 children 5yo 3yo 1 yo who in a 2 story home with 5 steps to enter and 6 steps to bed/bathroom. She is under workmans Comp .She is assisted with [facility] daily living.She does
not drive anymore. She requested PT OT . notified.
Had VN in past . No SNF hx
Pharmacy [facility]
PCP Dr Nowak
PLAN Home with [facility]
[2024-04-22 15:00] VITALS: BP 124/79
== END 2024-04-22 17:25 | disposition home health service (06) | DRG 897 ==
LOC: 3 WEST ACU 02:54
PROVIDERS: Clinical Nurse Specialist Family Health; Emergency Medicine; ADMITTING PHYSICIAN Hospitalist; ATTENDING PHYSICIAN Hospitalist; CONSULT PHYSICIAN Internal Medicine Gastroenterology; CONSULT PHYSICIAN Psychiatry & Neurology Psychiatry; EMERGENCY PHYSICIAN Student in an Organized Health Care Education/Training Program; FAMILY PHYSICIAN Physician Assistant Medical
DX: F11.23 Opioid dependence with withdrawal (principal); R45.851 Suicidal ideations; Z68.41 Body mass index [BMI] 40.0-44.9, adult; F17.200 Nicotine dependence, unspecified, uncomplicated; F32.A Depression, unspecified; F41.9 Anxiety disorder, unspecified; G89.29 Other chronic pain; E66.01 Morbid (severe) obesity due to excess calories; K31.84 Gastroparesis
CPT/HCPCS: 74019; 80048; 80053; 80306; 80307; 82607; 82728; 82746; 83540; 83550; 83735; 84100; 84443; 84703; 85025; 85027; 87045; 87046; 87324; 87328; 87329; 87427; 87449; 89055; 93005; 96361; 96374; 96375; 99285

== ENCOUNTER 2024-10-02 09:55 | Emergency (ER) | payer OTHER, SELFPAY ==
[2024-10-02 10:17] VITALS: BP 159/111
--- NOTE | 2024-10-02 12:16 | ED.GENMED ---
History of Present Illness
General
Chief Complaint: Abdominal Symptoms
Source: patient and records
Time Seen by Provider: 10/02/24 11:58
History of Present Illness
History of Present Illness:
28-year-old female with past medical history of CRPS, chronic nausea/vomiting, anxiety and depression, currently undergoing workup with GI and REDUCING SYSTEM OPERATOR for her chronic nausea and vomiting presenting to the ER at GIs request due to worsening nausea,
vomiting, inability to tolerate p.o. and abdominal pain over the last 2 to 3 weeks. Patient states that she has been having a significantly harder time keeping any solid or liquid down, now not able to tolerate her chronic medications. Patient was
recommended by her GI physician to come the ER for labs and medications and if need be admission. She is scheduled for gastric emptying study at the beginning of October and saw her REDUCING SYSTEM OPERATOR last week who felt that patient would likely need a hysterectomy
to help with her ongoing CRPS symptoms. Patient states that today symptoms are not any different than her usual although notes she has been unable to tolerate her usual medications due to the nausea and vomiting. Patient does get weekly ketamine
infusions as part of her pain regimen, was able to get this this past .
Past History
Past History
ED Past Medical History: Asthma (Patient Denies), Psychiatric (Anxiety, Depression, ) and Other (, ovarian cysts, hyperemesis gravidarum, RSD, Migraines, Renal calculus, Anemia. Complex regional pain Syndrome, Gi issues)
ED Past Surgical History: Cholecystectomy, , Gynecological (Ovarian cyst, 2 miscarriage's, D&C), Tonsilectomy (And adenoids) and Other (LLL resection)
Social History
Tobacco: Former smoker
Alcohol: None
Drug: None
Personal: (Engaged)
Living: with family
Employment: Employed
Family History
Family History: Other (Father with a 'stiff heart'. Family history of diabetes depression and anxiety grandfather with a stent in valve replacement)
Review of Systems
Review of Systems
All Other Systems: ROS reviewed and negative except as documented in HPI and ROS
Phy Exam
Physical Exam
Physical Exam:
GENERAL: Alert , appears uncomfortable, difficult time sitting still
HEAD: Normocephalic atraumatic
EYE: Clear conjunctiva
NECK: Supple
ENT: o/p clr, mmm.
CARDIAC: Regular rate and rhythm .
LUNGS: Clear breath sounds bilaterally, no acute respiratory distress, no wheezes/rales/rhonchi
ABDOMEN: Soft, diffusely tender normoactive bowel sounds, no r/g, no cvat
NEUROLOGICAL: Alert and oriented
SKIN: Warm and dry, skin intact.
MUSCULOSKELETAL: No edema, well perfused.
PSYCH: Normal and appropriate interaction.
Scores
Heart Failure Risk
Heart Failure Risk Score: Not Applicable
Heart Score for Chest Pain Patients
STEMI patient?: Not applicable
Withdrawal Assessment of Alcohol
Withdrawal Assessment Completed?: Not applicable
Course
Orders/Labs/Results
Orders:
Orders
10/02/24 12:12
0.9% Sodium Chloride 1000 ml [Nss] 1,000 ml IV BOLUS
Ketorolac [Toradol] 30 mg IV NOW STA
Prochlorperazine [Compazine] 10 mg IV NOW STA
10/02/24 12:13
Urinalysis Reflex To Culture Urgent
Date Specimen was Collected: 10/02/24
Time Specimen was Collected: 12:34
Test Result ONCE
10/02/24 12:37
Complete Blood Count/With Diff Urgent
Comprehensive Metabolic Panel Urgent
HCG, Serum Qualitative Screen Urgent
Lipase Urgent
10/02/24 13:03
HYDROmorphone [Dilaudid] 1 mg IV NOW STA
Abnormal Lab Results
10/02/24
12:37
MCHC 32.4 L g/dL
(33.0-37.0)
RDW 15.3 H %
(11.5-14.5)
Absolute Lymphs (auto) 4.7 H 10^3/uL
(1.2-3.4)
Carbon Dioxide 31 H mmol/L
(22-30)
10/02/24 12:37
10/02/24 12:37
Vital Signs
Initial and Last Documented VS:
Initial Vital Signs
Temp Pulse Resp BP Pulse Ox
98.2 F 104 16 159/111 98
10/02/24 10:17 10/02/24 10:17 10/02/24 10:17 10/02/24 10:17 10/02/24 10:17
Last Documented Vital Signs
Temp Pulse Resp BP Pulse Ox
98.2 F 88 20 144/88 99
10/02/24 10:17 10/02/24 13:00 10/02/24 13:00 10/02/24 13:00 10/02/24 13:00
MDM/Problems Addressed
Differential Diagnosis Includes:
Acute on chronic exacerbation of chronic GI symptoms, dehydration, electrolyte derangement, less concern for an acute surgical problem, gastroparesis,
MDM/Problems Addressed:
28-year-old female presenting to the ER for evaluation of acute on chronic exacerbation of her chronic GI symptoms. Recommended by GI to come to the ER for symptomatic relief. Currently hemodynamically stable. Has been to the ER here for similar
requiring admission. Patient did have CT imaging back in March which did not show any acute pathologies. Given patient stating her symptoms are all pretty much similar and seem to be a exacerbation of her chronic will defer imaging until labs
results. If there is significant lab abnormality will consider further imaging. Disposition pending.
Chronic conditions affecting care: Previous abdomnial surgery and Other (CRPS)
Acute Exacerbation and/or Progression of Chronic Illness: Previous abdomnial surgery and Other (CRPS)
*Pulse Oximetry
Patient hypoxic: no
*Critical Care Note
Total Time (30-74mins, 75-104mins- exclusive of procedures): Not Applicable
Data Reviewed
Review of Other/Old Records Reveals: Labs, Records, Radiology Studies and Discharge Summary
Source: patient and records
Patient Management
Escalation/DeEscalation of care consider admission/obs:
Patient's labs reassuring. She notes significant improvement of her symptoms following medications. Attempted p.o. trial and patient was able to tolerate without difficulty. Stable for discharge home and continued outpatient workup.
ED Attending Note
-
Portions of this chart may have been created with voice recognition software.� Occasional wrong word or��sound alike� substitutions may have occurred due to the inherent limitations of voice recognition software.
Discharge Plan
Departure
Patient Disposition: Home (Routine Discharge)
Date of Disposition: 10/02/24
Time of Disposition: 14:13
Patient with high blood pressure during this ER visit?: Yes
Discharge Problem:
Chronic abdominal pain, Nausea and vomiting
Instructions: Abdominal Pain
Prescriptions:
No Action
venlafaxine [Effexor XR] 37.5 mg Capsule,Extended Release 24hr
37.5 mg PO DAILY Qty: 7 0RF
gabapentin 400 mg Capsule
1,200 mg PO BID Qty: 90 0RF
mirtazapine 7.5 mg Tablet
7.5 mg PO HS Qty: 30 0RF
pantoprazole 40 mg Tablet,Delayed Release (Dr/Ec)
40 mg PO DAILY Qty: 30 0RF
Referrals:
Joselin Mullen PA-C [Family Provider] -
Interventions
Interventions:
*Risk Screen - Suicide Last Done: 10/02/24 10:17
*General Assessment Last Done: 10/02/24 11:06
*Neglect/Abuse Screening Last Done: 10/02/24 10:17
ED- Fall Risk Assessment Last Done: 10/02/24 11:06
*Nursing Disposition Last Done: 10/02/24 14:16
[id number] Assessment Last Done: 10/02/24 11:06
Discharge Date and Time
Discharge Date/Time: 10/02/24 14:37
Print Language: MAURITIAN
[2024-10-02] MEDS: COMPAZINE 10 MG IV (12:40)
[2024-10-02] MEDS: TORADOL 30 MG IV (12:41)
[2024-10-02] MEDS: NSS 1000 IV (12:41)
[2024-10-02 12:55] LABS: Hematocrit 38.9 % (37.0-47.0); Hemoglobin 12.6 g/dL (12.0-16.0); Mean Corp Hgb Conc. 32.4 g/dL (33.0-37.0); Mean Corpuscular Volume 83.3 fL (81.0-99.0); Platelet Count 300 10^3/uL (130-400); Red Blood Cell Count 4.67 10^6/uL (4.20-5.40); Red Cell Dist. Width 15.3 % (11.5-14.5); White Blood Cell Count 10.4 10^3/uL (4.8-10.8)
[2024-10-02 12:58] LABS: HCG, Serum Qualitative Screen Negative
[2024-10-02 13:00] VITALS: BP 144/88
[2024-10-02 13:03] LABS: ALT (SGPT) 34 U/L (0-35); AST (SGOT) 20 U/L (14-36); Albumin 4.4 g/dl (3.5-5.0); Alkaline Phosphatase 65 U/L (38-126); Blood Urea Nitrogen 13 mg/dl (7-17); Calcium 9.6 mg/dl (8.4-10.2); Carbon Dioxide 31 mmol/L (22-30); Chloride 98 mmol/L (98-107); Glucose 86 mg/dl (70-99); Lipase 103 U/L (23-300); Potassium 4.3 mmol/L (3.5-5.1); Sodium 137 mmol/L (135-145); Total Bilirubin 0.7 mg/dl (0.2-1.3); Total Protein 7.1 g/dl (6.3-8.2); eGFR > 60.00
[2024-10-02] MEDS: DILAUDID 1 MG IV (13:24)
[2024-10-02 13:53] LABS: % Basophils 0.3 % (0-2); % Immature Granulocytes 0.3 % (0-0.5); % Lymphocytes 45.3 % (20.5-51.1); % Monocytes 5.9 % (1.7-9.3); % Neutrophils 48.2 % (42.2-75.2); Absolute Lymphocytes 4.7 10^3/uL (1.2-3.4); Absolute Monocytes 0.6 10^3/uL (0.1-0.6); Nucleated Red Blood Cells % 0 %
== END 2024-10-02 14:37 | disposition home or self-care (01) ==
LOC: EMR 09:55
PROVIDERS: Physician Assistant Medical; EMERGENCY PHYSICIAN Student in an Organized Health Care Education/Training Program; FAMILY PHYSICIAN Physician Assistant Medical
DX: G89.29 Other chronic pain (principal); R10.9 Unspecified abdominal pain; R11.2 Nausea with vomiting, unspecified; Z87.891 Personal history of nicotine dependence; Z87.442 Personal history of urinary calculi; Z90.49 Acquired absence of other specified parts of digestive tract
CPT/HCPCS: 96374; 96375; 96361; 99284; 80053; 83690; 84703; 85025

== ENCOUNTER 2024-10-05 23:19 | Emergency (ER) | payer OTHER, SELFPAY ==
[2024-10-05 23:21] VITALS: BP 121/72
[2024-10-05 23:41] LABS: Hematocrit 38.3 % (37.0-47.0); Hemoglobin 12.3 g/dL (12.0-16.0); Mean Corp Hgb Conc. 32.1 g/dL (33.0-37.0); Mean Corpuscular Hgb 26.7 pg (27.0-31.0); Mean Corpuscular Volume 83.1 fL (81.0-99.0); Mean Platelet Volume 10.1 fL (7.4-10.4); Platelet Count 341 10^3/uL (130-400); Red Blood Cell Count 4.61 10^6/uL (4.20-5.40); Red Cell Dist. Width 15.5 % (11.5-14.5); White Blood Cell Count 8.8 10^3/uL (4.8-10.8)
[2024-10-05 23:58] LABS: HCG, Serum Qualitative Screen Negative
[2024-10-05 23:59] LABS: % Basophils 0.1 % (0-2); % Immature Granulocytes 0.5 % (0-0.5); % Monocytes 0.3 % (1.7-9.3); % Neutrophils 88.1 % (42.2-75.2); Absolute Neutrophils 7.7 10^3/uL (1.4-6.5); Nucleated Red Blood Cells % 0 %
[2024-10-06 00:06] LABS: Troponin I < 0.012 ng/ml
[2024-10-06 00:09] LABS: ALT (SGPT) 59 U/L (0-35); AST (SGOT) 65 U/L (14-36); Albumin 4.2 g/dl (3.5-5.0); Alkaline Phosphatase 60 U/L (38-126); Blood Urea Nitrogen 23 mg/dl (7-17); Carbon Dioxide 22 mmol/L (22-30); Chloride 104 mmol/L (98-107); Glucose 182 mg/dl (70-99); Potassium 4.4 mmol/L (3.5-5.1); Sodium 136 mmol/L (135-145); Total Bilirubin 0.5 mg/dl (0.2-1.3); eGFR > 60.00
[2024-10-06 03:20] VITALS: BP 128/81
[2024-10-06 05:02] VITALS: BMI 45.3
[2024-10-06 05:03] VITALS: BP 112/96
--- NOTE | 2024-10-06 05:54 | ED.GENMED ---
History of Present Illness
General
Chief Complaint: Heart Rate Problem
Source: patient
Exam Limitations: none
Time Seen by Provider: 10/06/24 05:54
History of Present Illness
History of Present Illness:
28-year-old female returned yesterday after receiving ketamine for her ongoing abdominal pain/issues. Last evening she noted fast heart rate felt palpitations checked her heart rate and it was in the 140s to 150s. Medics were called. It went up
into the 170s. She has some chest pain to her left shoulder although this did not start suddenly at that time. No pleuritic pain and shortness of breath no fever. Abdominal pain has been an issue for months. Etiology unknown. She feels better
now but still feels a little tachycardic and has her ongoing pain.
Past History
Past History
ED Past Medical History: Asthma (Patient Denies), Psychiatric (Anxiety, Depression, ) and Other (, ovarian cysts, hyperemesis gravidarum, RSD, Migraines, Renal calculus, Anemia. Complex regional pain Syndrome, Gi issues)
ED Past Surgical History: Cholecystectomy, , Gynecological (Ovarian cyst, 2 miscarriage's, D&C), Tonsilectomy (And adenoids) and Other (LLL resection)
Social History
Tobacco: Former smoker
Alcohol: None
Drug: None
Personal: (Engaged)
Living: with family
Employment: Employed
Family History
Family History: Other (Father with a 'stiff heart'. Family history of diabetes depression and anxiety grandfather with a stent in valve replacement)
Review of Systems
Review of Systems
Constitutional: Denies fever or chills
Respiratory: Reports no symptoms
Cardiac: Reports no symptoms
Phy Exam
Physical Exam
Physical Exam:
GENERAL: Alert and oriented in no apparent distress
EYE: Orbits normal.
NECK: Supple, no thyroid palpable
ENT: Pharynx without erythema
CARDIAC: Tachycardic and regular no murmur
LUNGS: Clear breath sounds,normal
ABDOMEN: Soft, bowel sounds present. Mild reproducible right mid and lower quadrant tenderness
NEUROLOGICAL: Alert and oriented , grossly non-focal
SKIN: Warm and dry, no rash or lesion, no discoloration, skin intact.
MUSCULOSKELETAL: No edema,no deformity.Good color
PSYCH: Normal and appropriate interaction.
Course
Orders/Labs/Results
Orders:
Orders
10/05/24 23:23
Electrocardiogram (*1) Urgent
Reason for Study: Chest Pain
Cardiac Monitoring- Treatment ONCE
EKG- Treatment ONCE
IV Insert/Care/Rem.- Treatment PRN
Test Result ONCE
O2 Therapy [RESP] Urgent
Titrate/Wean O2 to maintain O2 sat greater than (%): 90
Special Instructions: Maintain sats >/=90%
Pulse Ox/spot Check [RESP] Urgent
Quantity: 1
Special Instructions: ON ROOM AIR
10/05/24 23:31
Complete Blood Count/With Diff Urgent
Comprehensive Metabolic Panel Urgent
Free T4 Urgent
HCG, Serum Qualitative Screen Urgent
Comment: Notify provider if positive test present
TSH Reflex To Free T4 Urgent
Comment: ADD ON
Troponin I Urgent
10/06/24 06:02
Add On- LAB Urgent
Tests Added?: tsh reflex t4
10/06/24 06:03
0.9% Sodium Chloride 1000 ml [Nss] 1,000 ml IV BOLUS
Ketorolac [Toradol] 15 mg IV NOW STA
Ondansetron Injectable [Zofran] 4 mg IV NOW STA
US Abdomen Complete/Upper Urgent
Comment:
Reason For Exam: Recurring abdominal/pelvic pain
10/06/24 07:33
D-Dimer Urgent
10/06/24 09:42
Diphenhydramine [Benadryl] 25 mg IV NOW STA
Prochlorperazine [Compazine] 5 mg IV NOW STA
10/06/24 11:04
Acetaminophen 1000MG/100Ml [Ofirmev] 1,000 mg in 100 ml IV ONCE
Acetaminophen IV Indication:: ED Narcotic Naive Pt-ONCE
HYDROmorphone [Dilaudid] 0.5 mg IV NOW STA
10/06/24 11:15
US Pelvis Transvaginal Only Urgent
Comment:
Reason For Exam: progressive pelvic pain
Abnormal Lab Results
10/05/24
23:31
MCH 26.7 L pg
(27.0-31.0)
MCHC 32.1 L g/dL
(33.0-37.0)
RDW 15.5 H %
(11.5-14.5)
Absolute Neuts (auto) 7.7 H 10^3/uL
(1.4-6.5)
Absolute Lymphs (auto) 1.0 L 10^3/uL
(1.2-3.4)
Absolute Monos (auto) 0.0 L 10^3/uL
(0.1-0.6)
Neutrophils % 88.1 H %
(42.2-75.2)
Lymphocytes % 11.0 L %
(20.5-51.1)
Monocytes % 0.3 L %
(1.7-9.3)
BUN 23 H mg/dl
(7-17)
Glucose 182 H mg/dl
(70-99)
AST 65 H U/L
(14-36)
ALT 59 H U/L
(0-35)
TSH (Reflex) 0.31 L uIU/ml
(0.47-4.68)
10/05/24 23:31
10/05/24 23:31
Vital Signs
Initial and Last Documented VS:
Initial Vital Signs
Temp Pulse Resp BP Pulse Ox
99.8 F 125 20 121/72 97
10/05/24 23:21 10/05/24 23:21 10/05/24 23:21 10/05/24 23:21 10/05/24 23:21
Last Documented Vital Signs
Temp Pulse Resp BP Pulse Ox
98.0 F 112 16 96/62 97
10/06/24 05:03 10/06/24 10:02 10/06/24 10:02 10/06/24 10:02 10/06/24 10:02
MDM/Problems Addressed
Differential Diagnosis Includes:
As for patient's tachycardia, heart rate is down to 110. Sinus tachycardia no distress. Cardiac testing is normal. Doubt pulmonary emboli but will check D-dimer. Check thyroid. Electrolytes. This may be a pain issue. She needs a pelvic
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 Previous records were reviewed. She does have a right ovarian cyst. Will check ultrasounds at this time. Fluids. Pain management and nausea management.
*Pulse Oximetry
Patient hypoxic: no
*EKG
Interpreted by ED Provider?: Yes
Interpretation: abnormal
Comparison EKG: changes noted
Heart Rate: 131
Rate: tachycardiac
Rhythm: sinus
[place]: normal axis
Interval: normal interval
QRS Pattern: normal QRS
Ischemia: no ischemia
*Critical Care Note
Total Time (30-74mins, 75-104mins- exclusive of procedures): Not Applicable
Data Reviewed
Review of Other/Old Records Reveals: Labs, Records, Radiology Studies (Right ovarian cyst.) and Testing
Update Note
Update Note:
1130.... Patient is remained stable. Heart rate in the 90s. Normal sinus rhythm. No serious etiology for her tachycardia. Possibly secondary to pain. She has had this ongoing lower abdominal pain mostly right-sided for months. She is followed
by GI and DESKTOP SUPPORT MANAGER. She had a CT scan that showed a ovarian cyst otherwise unremarkable. For completeness a pelvic and abdominal ultrasound are being done.
1245.... Ultrasound reviewed with radiology. No acute findings by pelvic or abdominal ultrasound. Patient was on her phone leaving ultrasound in no distress. Tachycardia has resolved. Stable for discharge to follow-up
ED Attending Note
-
Portions of this chart may have been created with voice recognition software.� Occasional wrong word or��sound alike� substitutions may have occurred due to the inherent limitations of voice recognition software.
Discharge Plan
Departure
Patient Disposition: Home (Routine Discharge)
Date of Disposition: 10/06/24
Time of Disposition: 12:47
Patient with high blood pressure during this ER visit?: No
Discharge Problem:
Tachycardia, Ongoing recurrent abdominal pain
Instructions: Tachycardia, Pelvic Pain ED, Abdominal pain in adults - Discharge instructions, Palpitations, BLOOD PRESSURE
Prescriptions:
No Action
ondansetron HCl [Zofran] 8 mg Tablet
8 mg PO TID
Rx Instructions:
SL for nausea
mirtazapine 15 mg Tablet
15 mg PO HS
Cymbalta
90 mg PO DAILY
Dilaudid
4 mg PO Q12H
Referrals:
UNKNOWN - PT DOES,NOT KNOW [Family Provider] -
Activity Restrictions/Additional Instructions:
Follow-up closely with your primary physician, DESKTOP SUPPORT MANAGER physician and gastrointestinal physician
Interventions
Interventions:
*Risk Screen - Suicide Last Done: 10/05/24 23:21
*General Assessment Last Done: 10/06/24 05:09
*Neglect/Abuse Screening Last Done: 10/05/24 23:21
ED- Fall Risk Assessment Last Done: 10/06/24 05:05
*ED COVID-19 Vaccine History Last Done: 10/06/24 05:04
ED- Cardiac Assessment Last Done: 10/06/24 05:05
ED- Pulmonary Assessment Last Done: 10/06/24 05:05
Discharge Date and Time
Print Language: URDU
[2024-10-06 06:00] VITALS: BP 145/93
[2024-10-06] MEDS: NSS 1000 IV (06:20)
[2024-10-06] MEDS: ZOFRAN 4 MG IV (06:21)
[2024-10-06] MEDS: TORADOL 15 MG IV (06:21)
[2024-10-06 07:09] LABS: TSH Reflex To Free T4 0.31 uIU/ml (0.47-4.68)
[2024-10-06 08:05] VITALS: BP 127/77
[2024-10-06 08:10] LABS: Free T4 1.11 ng/dl (0.78-2.19)
[2024-10-06 08:41] LABS: D-Dimer < 0.27 ug/mlFEU (0.00-0.50)
[2024-10-06] MEDS: BENADRYL 25 MG IV (09:46)
[2024-10-06] MEDS: COMPAZINE 5 MG IV (09:46)
[2024-10-06 10:02] VITALS: BP 96/62
[2024-10-06] MEDS: DILAUDID 0.5 MG IV (11:07)
[2024-10-06] MEDS: OFIRMEV 100 IV (11:08)
[2024-10-06 12:59] VITALS: BP 115/73
== END 2024-10-06 13:00 | disposition home or self-care (01) ==
LOC: EMR 23:19
PROVIDERS: Emergency Medicine; EMERGENCY PHYSICIAN Emergency Medicine
DX: R00.0 Tachycardia, unspecified (principal); R10.30 Lower abdominal pain, unspecified; Z87.891 Personal history of nicotine dependence
CPT/HCPCS: 99285; 96374; 96375 ×5; 96361; 76700; 76830; 80053; 84439; 84443; 84484; 84703; 85025; 85379; 93005

== ENCOUNTER → 2024-10-07 10:50 | Outpatient (REF) | payer OTHER, SELFPAY | LOC: PAVMRI 10:50 | PROVIDERS: ATTENDING PHYSICIAN Physician Assistant Surgical; FAMILY PHYSICIAN Physician Assistant Medical | DX: G35 Multiple sclerosis (principal) | CPT/HCPCS: 72141; 72148 ==

== ENCOUNTER → 2024-10-27 09:21 | Outpatient (REF) | payer OTHER, SELFPAY | LOC: RAD 09:21 | PROVIDERS: ATTENDING PHYSICIAN Internal Medicine; FAMILY PHYSICIAN Physician Assistant Medical | DX: R11.2 Nausea with vomiting, unspecified (principal) | CPT/HCPCS: 78264; A9541 ==